=== PATIENT | male | born 1990 | race African-American/Black ===

== ENCOUNTER 2017-05-13 22:09 | Inpatient (IN) | payer SELFPAY ==
[~2017-05-13] VITALS: Ht 172.7 cm; Wt 63.3 kg
[~2017-05-13 22:09] MED LIST: Z.0.NO CURRENT MEDS
[2017-05-13] MEDS ORDERED: SODIUM CHLOR 0.9% 1000 ML INJ 1,000 ML IV SCH ×2 (22:14→22:22)
[2017-05-13] MEDS ORDERED: SODIUM CHLORIDE 0.9% FLUSH 5 ML FLUSH IV FLUSH PRN (22:15)
[2017-05-13 22:19] VITALS: BP 122/73; PULSE 115; RESP 30; TEMP 98.7
--- NOTE | 2017-05-13 22:27 | PD ---
HPI Chief Complaint: Medical Clearance Time Seen by Provider: 22:10 Travel History International Travel<30 days: No Contact w/Intl Traveler<30days: No Traveled to known affect area: No History of Present Illness HPI This is a 26-year-old male who presents via EMS with police escort evaluation of agitation and altered mental status. History is limited secondary to patient condition. EMS reports that the police apparently approached a suspicious car at a [address] and some members of the car noted that the patient was acting altered and had been hallucinating throughout the day. There was no admitted drug use. The patient is currently agitated, tachycardic, somewhat diaphoretic. Per chart review the patient's last recorded visit at this facility is in 2012. PFS Past Medical History Cancer: No Cardiovascular Problems: No Diminished Hearing: No Endocrine: No Gastrointestinal Disorders: No Genitourinary: No Immune Disorder: No Implanted Vascular Access Dvce: No Musculoskeletal: No Neurologic: No Psychiatric: No Reproductive: No Respiratory: No Past Surgical History Oral Surgery: Yes (FOR BROKEN JAW) Pacemaker: No Social History Alcohol Use: No Tobacco Use: Yes (1.5 PPD) Substance Use: No Allergies-Medications (Allergen,Severity, Reaction): Coded Allergies: tomato (Unverified Allergy, Severe, 05/13/17) Uncoded Allergies: PURPLE DYE (Allergy, Severe, 04/26/11) Reported Meds & Prescriptions Reported Meds & Active Scripts Active Review of Systems ROS Limitations: Altered Mental Status, Combative Except as stated in HPI: all other systems reviewed are Neg Physical Exam Exam Limitations: Altered Mental Status, Combative Narrative GENERAL: This is a well-nourished young male who is agitated, not responding to commands, occasionally shouting "ya'll are hurting me." Tachycardiac, SKIN: Warm and dry. The patient's pants are noted to be soaked in urine. Some abrasions are noted on the feet. HEAD: Atraumatic. Normocephalic. EYES: Pupils equal and round dilated, reactive to light, extraocular muscles appear intact. No scleral icterus. No injection or drainage. ENT: No nasal bleeding or discharge. Mucous membranes pink and moist. No obvious tongue biting. NECK: Trachea midline. No JVD. CARDIOVASCULAR: Regular rate and rhythm. No murmur appreciated. RESPIRATORY: No accessory muscle use. Clear to auscultation. Breath sounds equal bilaterally. GASTROINTESTINAL: Abdomen soft, non-tender, nondistended. Hepatic and splenic margins not palpable. MUSCULOSKELETAL: No obvious deformities. No edema. NEUROLOGICAL: Awake and alert. No obvious cranial nerve deficits. Motor grossly within normal limits. Pressured speech. PSYCHIATRIC: Agitated, paranoid, combative Data Data Last Documented VS Vital Signs Date Time Temp Pulse Resp B/P (MAP) Pulse Ox O2 Delivery O2 Flow Rate FiO2 05/13/17 23:45 92 14 119/76 (90) 100 Non-Rebreather 15.00 05/13/17 22:19 98.7 Orders Orders Electrocardiogram (05/13/17 22:14) Complete Blood Count With Diff (05/13/17 22:14) Comprehensive Metabolic Panel (05/13/17 22:14) Creatine Kinase (Cpk) (05/13/17 22:14) Thyroid Stimulating Hormone (05/13/17 22:14) Urinalysis - C+S If Indicated (05/13/17 22:14) Chest, Single Ap (05/13/17 22:14) Ct Brain W/O Iv Contrast(Rout) (05/13/17 22:14) Blood Glucose (05/13/17 22:14) Ecg Monitoring (05/13/17 22:14) Iv Access Insert/Monitor (05/13/17 22:14) Oximetry (05/13/17 22:14) Sodium Chloride 0.9% Flush (Ns Flush) (05/13/17 22:15) Sodium Chlor 0.9% 1000 Ml Inj (Ns 1000 M (05/13/17 22:14) Drug Screen, Random Urine (05/13/17 22:14) Alcohol (Ethanol) (05/13/17 22:14) Tylenol (Acetaminophen) (05/13/17 22:14) Salicylates (Aspirin) (05/13/17 22:14) Troponin I (05/13/17 22:14) Lorazepam Inj (Ativan Inj) (05/13/17 22:30) Sodium Chlor 0.9% 1000 Ml Inj (Ns 1000 M (05/13/17 22:22) Arterial Blood Gas (Abg) (05/13/17 ) Electrocardiogram (05/13/17 ) CKMB (05/13/17 22:21) CKMB% (05/13/17 22:21) Alcohol (Ethanol) (05/14/17 00:30) Sodium Chlor 0.9% 1000 Ml Inj (Ns 1000 M (05/14/17 00:30) Blood Glucose (05/14/17 00:30) Lorazepam Inj (Ativan Inj) (05/14/17 00:30) Arterial Blood Gas (Abg) (05/14/17 ) D5-Ns + Kcl 20 Meq Inj (D5-Ns + Kcl 20 M (05/14/17 03:15) Urine Culture (05/14/17 03:20) Admit Order (Ed Use Only) (05/14/17 ) ^ Saline Lock (05/14/17 03:40) Resp Oxygen Parvez C Titrat 1-4 L (05/14/17 ) Notify Dr: Other (05/14/17 03:40) Sodium Chloride 0.9% Flush (Ns Flush) (05/14/17 09:00) Sodium Chloride 0.9% Flush (Ns Flush) (05/14/17 03:45) Labs Laboratory Tests Test 05/13/17 22:21 05/13/17 22:54 05/14/17 00:36 05/14/17 03:20 White Blood Count 9.2 TH/MM3 Red Blood Count 5.56 MIL/MM3 Hemoglobin 15.4 GM/DL Hematocrit 46.1 % Mean Corpuscular Volume 82.8 FL Mean Corpuscular Hemoglobin 27.6 PG Mean Corpuscular Hemoglobin Concent 33.4 % Red Cell Distribution Width 13.3 % Platelet Count 199 TH/MM3 Mean Platelet Volume 9.4 FL Neutrophils (%) (Auto) 85.0 % Lymphocytes (%) (Auto) 7.9 % Monocytes (%) (Auto) 5.5 % Eosinophils (%) (Auto) 0.1 % Basophils (%) (Auto) 1.5 % Neutrophils # (Auto) 7.9 TH/MM3 Lymphocytes # (Auto) 0.7 TH/MM3 Monocytes # (Auto) 0.5 TH/MM3 Eosinophils # (Auto) 0.0 TH/MM3 Basophils # (Auto) 0.1 TH/MM3 CBC Comment AUTO DIFF Differential Comment AUTO DIFF CONFIRMED Platelet Estimate NORMAL Platelet Morphology Comment NORMAL Blood Urea Nitrogen 25 MG/DL Creatinine 1.94 MG/DL Random Glucose 65 MG/DL Total Protein 8.4 GM/DL Albumin 4.7 GM/DL Calcium Level 9.5 MG/DL Alkaline Phosphatase 61 U/L Aspartate Amino Transf (AST/SGOT) 46 U/L Alanine Aminotransferase (ALT/SGPT) 24 U/L Total Bilirubin 1.7 MG/DL Sodium Level 140 MEQ/L Potassium Level 3.8 MEQ/L Chloride Level 99 MEQ/L Carbon Dioxide Level 28.1 MEQ/L Anion Gap 13 MEQ/L Estimat Glomerular Filtration Rate 52 ML/MIN Total Creatine Kinase 2286 U/L Creatine Kinase MB 3.8 NG/ML Creatine Kinase MB % 0.2 % Troponin I 0.05 NG/ML Thyroid Stimulating Hormone 3rd Gen 1.680 uIU/ML Salicylates Level LESS THAN 1.7 MG/DL Acetaminophen Level LESS THAN 2.0 MCG/ML Ethyl Alcohol Level LESS THAN 3 MG/DL Blood Gas Puncture Site RT RADIAL RT RADIAL Blood Gas Patient Temperature 98.6 98.6 Blood Gas HCO3 22 mmol/L 21 mmol/L Blood Gas Base Excess -0.9 mmol/L -2.3 mmol/L Blood Gas Oxygen Saturation 97 % 98 % Arterial Blood pH 7.53 7.48 Arterial Blood Partial Pressure CO2 26 mmHg 28 mmHg Arterial Blood Partial Pressure O2 316 mmHG 286 mmHG Arterial Blood Oxygen Content 20.3 Vol % 19.8 Vol % Arterial Blood Carboxyhemoglobin 2.7 % 1.2 % Arterial Blood Methemoglobin 0.5 % 0.6 % Blood Gas Hemoglobin 14.4 G/DL 13.9 G/DL Oxygen Delivery Device Non-Rebreathing Mask NASAL CANNULA Blood Gas Liter Flow 15 L/M 4 L/M Blood Gas Inspired Oxygen 100 % Urine Color YELLOW Urine Turbidity CLEAR Urine pH 6.5 Urine Specific [place] 1.019 Urine Protein TRACE mg/dL Urine Glucose (UA) NEG mg/dL Urine Ketones 40 mg/dL Urine Occult Blood NEG Urine Nitrite NEG Urine Bilirubin NEG Urine Urobilinogen LESS THAN 2.0 MG/DL Urine Leukocyte Esterase NEG Urine RBC LESS THAN 1 /hpf Urine WBC 1 /hpf Urine Transitional Epithelial Cells <1 /hpf Urine Bacteria RARE /hpf Urine Hyaline Casts 4 /lpf Urine Mucus FEW /lpf Microscopic Urinalysis Comment CATH-CULTURE IND Urine Opiates Screen NEG Urine Barbiturates Screen NEG Urine Amphetamines Screen NEG Urine Benzodiazepines Screen NEG Urine Cocaine Screen NEG Urine Cannabinoids Screen POS MDM Medical Decision Making Medical Screen Exam Complete: Yes Emergency Medical Condition: Yes Medical Record Reviewed: Yes Differential Diagnosis Sympathomimetic drug abuse, anticholinergic drug abuse, postictal state, closed head injury, intracranial hemorrhage, encephalopathy, meningitis, rhabdomyolysis , heat illness Narrative Course The patient will be placed on ECG monitoring and pulse oximetry. A 12-lead EKG will be obtained. 2 mg of IV Ativan will be administered, 2 L normal saline bolus. Chest x-ray, CT of the brain have been ordered. Procedures EKG Prior to Arrival: Yes Karthik Romero May 13, 2017 22:27
[2017-05-13] MEDS ORDERED: LORazepam 2 MG/ML VIAL IV PUSH ONE (22:30)
[2017-05-13 22:36] LABS: AUTOMATED NEUTROPHIL # 7.9 TH/MM3 (1.8-7.7); BASOPHIL # 0.1 TH/MM3 (0-0.2); BASOPHIL % 1.5 % (0.0-2.0); EOSINOPHIL % 0.1 % (0.0-4.0); HEMATOCRIT 46.1 % (39.0-51.0); LYMPH % 7.9 % (9.0-44.0); LYMPHOCYTE # 0.7 TH/MM3 (1.0-4.8); MEAN CELL VOLUME 82.8 FL (80.0-100.0); MEAN CORPUSCULAR HEMOGLOBIN 27.6 PG (27.0-34.0); MEAN CORPUSCULAR HGB CONC 33.4 % (32.0-36.0); MONO % 5.5 % (0.0-8.0); PLATELET COUNT 199 TH/MM3 (150-450); RED BLOOD COUNT 5.56 MIL/MM3 (4.50-5.90); RED CELL DISTRIBUTION WIDTH 13.3 % (11.6-17.2); WHITE BLOOD COUNT 9.2 TH/MM3 (4.0-11.0)
[2017-05-13 22:39] LABS: HEMO FLAGS AUTO DIFF
[2017-05-13 22:50] VITALS: BP 117/76; PULSE 84; RESP 12; O2SAT 99
[2017-05-13 22:53] VITALS: RESP 12; O2SAT 99
[2017-05-13 23:07] LABS: BLOOD GAS BASE EXCESS -0.9 mmol/L (-2-2); BLOOD GAS CARBOXYHEMOGLOBIN 2.7 % (0-4); BLOOD GAS HCO3 22 mmol/L (22-26); BLOOD GAS METHEMOGLOBIN 0.5 % (0-2); BLOOD GAS O2 HGB SATURATION 97 % (90-100); BLOOD GAS OXYGEN CONTENT 20.3 Vol % (12.0-20.0); BLOOD GAS PCO2 26 mmHg (38-42); BLOOD GAS PO2 316 mmHG (61-120); BLOOD GAS TOTAL HGB 14.4 G/DL (12.0-16.0); CRITICAL VALUE YES; DRAW SITE RT RADIAL; FIO2 100 %; LITER FLOW 15 L/M; NUMBER OF ARTERIAL PUNCTURES 1; TEMP CORR TO 98.6
[2017-05-13 23:08] LABS: STAT YES; ULNAR PULSE Y
--- NOTE | 2017-05-13 23:09 | PD ---
Physical Exam Date Seen by Provider: May 13, 2017 Time Seen by Provider: 23:06 Narrative GENERAL: Well-developed well-nourished male in no acute distress on supplemental oxygen after Ativan 2 mg administered awakens to verbal tactile and painful stimuli with intermittent purposeful movement 12 SKIN: Warm and dry. HEAD: Normocephalic. EYES: No scleral icterus. No injection or drainage. NECK: Supple, trachea midline. No JVD or lymphadenopathy. CARDIOVASCULAR: Regular rate and rhythm without murmurs, gallops, or rubs. RESPIRATORY: Breath sounds equal bilaterally. No accessory muscle use. GASTROINTESTINAL: Abdomen soft, non-tender, nondistended. MUSCULOSKELETAL: No cyanosis, or edema. BACK: Nontender without obvious deformity. No CVA tenderness. Data Data Last Documented VS Vital Signs Date Time Temp Pulse Resp B/P (MAP) Pulse Ox O2 Delivery O2 Flow Rate FiO2 05/13/17 23:45 92 14 119/76 (90) 100 Non-Rebreather 15.00 05/13/17 22:19 98.7 Orders Orders Electrocardiogram (05/13/17 22:14) Complete Blood Count With Diff (05/13/17 22:14) Comprehensive Metabolic Panel (05/13/17 22:14) Creatine Kinase (Cpk) (05/13/17 22:14) Thyroid Stimulating Hormone (05/13/17 22:14) Urinalysis - C+S If Indicated (05/13/17 22:14) Chest, Single Ap (05/13/17 22:14) Ct Brain W/O Iv Contrast(Rout) (05/13/17 22:14) Blood Glucose (05/13/17 22:14) Ecg Monitoring (05/13/17 22:14) Iv Access Insert/Monitor (05/13/17 22:14) Oximetry (05/13/17 22:14) Sodium Chloride 0.9% Flush (Ns Flush) (05/13/17 22:15) Sodium Chlor 0.9% 1000 Ml Inj (Ns 1000 M (05/13/17 22:14) Drug Screen, Random Urine (05/13/17 22:14) Alcohol (Ethanol) (05/13/17 22:14) Tylenol (Acetaminophen) (05/13/17 22:14) Salicylates (Aspirin) (05/13/17 22:14) Troponin I (05/13/17 22:14) Lorazepam Inj (Ativan Inj) (05/13/17 22:30) Sodium Chlor 0.9% 1000 Ml Inj (Ns 1000 M (05/13/17 22:22) Arterial Blood Gas (Abg) (05/13/17 ) Electrocardiogram (05/13/17 ) CKMB (05/13/17 22:21) CKMB% (05/13/17 22:21) Alcohol (Ethanol) (05/14/17 00:30) Sodium Chlor 0.9% 1000 Ml Inj (Ns 1000 M (05/14/17 00:30) Blood Glucose (05/14/17 00:30) Lorazepam Inj (Ativan Inj) (05/14/17 00:30) Arterial Blood Gas (Abg) (05/14/17 ) D5-Ns + Kcl 20 Meq Inj (D5-Ns + Kcl 20 M (05/14/17 03:15) Urine Culture (05/14/17 03:20) Admit Order (Ed Use Only) (05/14/17 ) ^ Saline Lock (05/14/17 03:40) Resp Oxygen Parvez C Titrat 1-4 L (05/14/17 ) Notify Dr: Other (05/14/17 03:40) Sodium Chloride 0.9% Flush (Ns Flush) (05/14/17 09:00) Sodium Chloride 0.9% Flush (Ns Flush) (05/14/17 03:45) Labs Laboratory Tests Test 05/13/17 22:21 05/13/17 22:54 05/14/17 00:36 05/14/17 03:20 White Blood Count 9.2 TH/MM3 Red Blood Count 5.56 MIL/MM3 Hemoglobin 15.4 GM/DL Hematocrit 46.1 % Mean Corpuscular Volume 82.8 FL Mean Corpuscular Hemoglobin 27.6 PG Mean Corpuscular Hemoglobin Concent 33.4 % Red Cell Distribution Width 13.3 % Platelet Count 199 TH/MM3 Mean Platelet Volume 9.4 FL Neutrophils (%) (Auto) 85.0 % Lymphocytes (%) (Auto) 7.9 % Monocytes (%) (Auto) 5.5 % Eosinophils (%) (Auto) 0.1 % Basophils (%) (Auto) 1.5 % Neutrophils # (Auto) 7.9 TH/MM3 Lymphocytes # (Auto) 0.7 TH/MM3 Monocytes # (Auto) 0.5 TH/MM3 Eosinophils # (Auto) 0.0 TH/MM3 Basophils # (Auto) 0.1 TH/MM3 CBC Comment AUTO DIFF Differential Comment AUTO DIFF CONFIRMED Platelet Estimate NORMAL Platelet Morphology Comment NORMAL Blood Urea Nitrogen 25 MG/DL Creatinine 1.94 MG/DL Random Glucose 65 MG/DL Total Protein 8.4 GM/DL Albumin 4.7 GM/DL Calcium Level 9.5 MG/DL Alkaline Phosphatase 61 U/L Aspartate Amino Transf (AST/SGOT) 46 U/L Alanine Aminotransferase (ALT/SGPT) 24 U/L Total Bilirubin 1.7 MG/DL Sodium Level 140 MEQ/L Potassium Level 3.8 MEQ/L Chloride Level 99 MEQ/L Carbon Dioxide Level 28.1 MEQ/L Anion Gap 13 MEQ/L Estimat Glomerular Filtration Rate 52 ML/MIN Total Creatine Kinase 2286 U/L Creatine Kinase MB 3.8 NG/ML Creatine Kinase MB % 0.2 % Troponin I 0.05 NG/ML Thyroid Stimulating Hormone 3rd Gen 1.680 uIU/ML Salicylates Level LESS THAN 1.7 MG/DL Acetaminophen Level LESS THAN 2.0 MCG/ML Ethyl Alcohol Level LESS THAN 3 MG/DL Blood Gas Puncture Site RT RADIAL RT RADIAL Blood Gas Patient Temperature 98.6 98.6 Blood Gas HCO3 22 mmol/L 21 mmol/L Blood Gas Base Excess -0.9 mmol/L -2.3 mmol/L Blood Gas Oxygen Saturation 97 % 98 % Arterial Blood pH 7.53 7.48 Arterial Blood Partial Pressure CO2 26 mmHg 28 mmHg Arterial Blood Partial Pressure O2 316 mmHG 286 mmHG Arterial Blood Oxygen Content 20.3 Vol % 19.8 Vol % Arterial Blood Carboxyhemoglobin 2.7 % 1.2 % Arterial Blood Methemoglobin 0.5 % 0.6 % Blood Gas Hemoglobin 14.4 G/DL 13.9 G/DL Oxygen Delivery Device Non-Rebreathing Mask NASAL CANNULA Blood Gas Liter Flow 15 L/M 4 L/M Blood Gas Inspired Oxygen 100 % Urine Color YELLOW Urine Turbidity CLEAR Urine pH 6.5 Urine Specific [place] 1.019 Urine Protein TRACE mg/dL Urine Glucose (UA) NEG mg/dL Urine Ketones 40 mg/dL Urine Occult Blood NEG Urine Nitrite NEG Urine Bilirubin NEG Urine Urobilinogen LESS THAN 2.0 MG/DL Urine Leukocyte Esterase NEG Urine RBC LESS THAN 1 /hpf Urine WBC 1 /hpf Urine Transitional Epithelial Cells <1 /hpf Urine Bacteria RARE /hpf Urine Hyaline Casts 4 /lpf Urine Mucus FEW /lpf Microscopic Urinalysis Comment CATH-CULTURE IND Urine Opiates Screen NEG Urine Barbiturates Screen NEG Urine Amphetamines Screen NEG Urine Benzodiazepines Screen NEG Urine Cocaine Screen NEG Urine Cannabinoids Screen POS MDM Medical Record Reviewed: Yes Supervised Visit with ARTUR: Yes Interpretation(s) EKG sinus tachycardia with early repolarization ST elevation (EKG repeated and reviewed with on-call field kiln burner concurs changes are most likely consistent with early repolarization and not with a STEMI or also less likely pericarditis) Differential Diagnosis Polysubstance ingestion, sympathomimetic overdose, sepsis, AMS Narrative Course Patient brought to the emergency department placed on monitor agitated combative administered Ativan 2 mg IV; specimens collected and sent for resulting; EKG performed consistent with early repolarization--discussed with on -call field kiln burner Dr. Bo Patient awakening from benzodiazepine sedation talking with bedside girlfriend Patient becoming agitated and additional benzodiazepine Ativan [address] brain noncontrast performed which reveals no acute abnormalities chest x-ray reveals no acute abnormality CK total elevated at 2289 concerning for rhabdomyolysis with acute kidney injury. In creatinine 25/1.95; troponin I 0.05 not elevated Blood sugar noted to be 67 on bedside glucose blood sugar 79 Patient continued to receive IV fluids Patient on maintenance fluids D5 normal saline with 20 mEq of KCL Case discussed with on-call resident service with plan to admit to Dr. Shell -- - will admit to [facility] telemetry Physician Communication Physician Communication discussed with Dr Morgan for Dr Shell Diagnosis Primary Impression: Altered mental status Additional Impressions: Rhabdomyolysis Acute kidney injury Polysubstance abuse Admitting Information Admitting Physician Requests: Admit Lelo Wilson MD May 13, 2017 23:08
[2017-05-13 23:11] LABS: ALKALINE PHOSPHATASE 61 U/L (45-117); ALT (GPT) 24 U/L (12-78); CREATINE KINASE 2286 U/L (39-308); TOTAL BILIRUBIN ADULT 1.7 MG/DL (0.2-1.0)
[2017-05-13 23:14] LABS: BLOOD UREA NITROGEN 25 MG/DL (7-18); GLOMERULAR FILTRATION RATE 52 ML/MIN (>89)
--- NOTE | 2017-05-13 23:14 | RADRPT ---
EXAM DATE/TIME: 05/13/2017 22:50 [facility] COMPARISON: CHEST PA & LAT, November 12, 2012, 20:17. INDICATIONS : Unresponsive, altered mental status. MEDICAL HISTORY : None. SURGICAL HISTORY : None. ENCOUNTER: Initial ACUITY: 1 day PAIN SCORE: Non-responsive. LOCATION: Bilateral chest FINDINGS: A single view of the chest demonstrates the lungs to be symmetrically aerated without evidence of mas s, infiltrate or effusion. The cardiomediastinal contours are unremarkable. Osseous structures are intact. CONCLUSION: No evidence of acute cardiopulmonary disease. Sheldon Gaitan MD on May 13, 2017 at 23:11 Board Certified Radiologist. This report was verified electronically.
[2017-05-13 23:15] LABS: ACETAMINOPHEN LESS THAN 2.0 MCG/ML (10.0-30.0); ANION GAP 13 MEQ/L (5-15); AST (GOT) 46 U/L (15-37); BICARBONATE 28.1 MEQ/L (21.0-32.0); CHLORIDE 99 MEQ/L (98-107); POTASSIUM 3.8 MEQ/L (3.5-5.1); SODIUM (NA) 140 MEQ/L (136-145)
[2017-05-13 23:16] LABS: ALCOHOL LESS THAN 3 MG/DL (0-5)
[2017-05-13 23:24] LABS: CKMB 3.8 NG/ML (0.5-3.6)
[2017-05-13 23:45] VITALS: BP 119/76; PULSE 92; RESP 14; O2SAT 100
[2017-05-14] VITALS (11 sets, daily range): BP systolic 96–149; BP diastolic 58–102; PULSE 56–111; RESP 12–22; TEMP 96.3–97.9; O2SAT 94–100
[2017-05-14 00:09] LABS: PLATELET ESTIMATE SMEAR NORMAL (NORMAL); PLATELET MORPHOLOGY NORMAL (NORMAL); SCAN/DIFF AUTO DIFF CONFIRMED
[2017-05-14] MEDS ORDERED: SODIUM CHLOR 0.9% 1000 ML INJ 1,000 ML IV ONE ×2 (00:30→18:00)
[2017-05-14] MEDS ORDERED: LORazepam 2 MG/ML VIAL IV PUSH ONE ×2 (00:30→10:45)
[2017-05-14 00:48] LABS: BLOOD GAS BASE EXCESS -2.3 mmol/L (-2-2); BLOOD GAS CARBOXYHEMOGLOBIN 1.2 % (0-4); BLOOD GAS HCO3 21 mmol/L (22-26); BLOOD GAS METHEMOGLOBIN 0.6 % (0-2); BLOOD GAS O2 HGB SATURATION 98 % (90-100); BLOOD GAS OXYGEN CONTENT 19.8 Vol % (12.0-20.0); BLOOD GAS PCO2 28 mmHg (38-42); BLOOD GAS PO2 286 mmHG (61-120); BLOOD GAS TOTAL HGB 13.9 G/DL (12.0-16.0); TEMP CORR TO 98.6
[2017-05-14 00:49] LABS: CRITICAL VALUE NO; DRAW SITE RT RADIAL; LITER FLOW 4 L/M; NUMBER OF ARTERIAL PUNCTURES 1; OXYGEN DEVICE NASAL CANNULA; STAT YES; ULNAR PULSE PRESENT
--- NOTE | 2017-05-14 02:59 | RADRPT ---
EXAM DATE/TIME: 05/14/2017 02:45 [facility] COMPARISON: No previous studies available for comparison. INDICATIONS : Altered mental status. Possible substance ingestion. RADIATION DOSE: 34.65 CTDIvol (mGy) MEDICAL HISTORY : None SURGICAL HISTORY : None. ENCOUNTER: Initial ACUITY: 1 day PAIN SCALE: 0/10 LOCATION: cranial TECHNIQUE: Multiple contiguous axial images were obtained of the head. Using automated exposure control and adj ustment of the mA and/or kV according to patient size, radiation dose was kept as low as reasonably a chievable to obtain optimal diagnostic quality images. DICOM format image data is available electro nically for review and comparison. FINDINGS: Motion degraded study. CEREBRUM: The ventricles are normal for age. No evidence of midline shift, mass lesion, hemorrhage or acute in farction. No extra-axial fluid collections are seen. POSTERIOR FOSSA: The cerebellum and brainstem are intact. The 4th ventricle is midline. The cerebellopontine angle i s unremarkable. EXTRACRANIAL: The visualized portion of the orbits is intact. SKULL: The calvaria is intact. No evidence of skull fracture. CONCLUSION: No acute intracranial abnormality demonstrated. Sheldon Gaitan MD on May 14, 2017 at 2:57 Board Certified Radiologist. This report was verified electronically.
[2017-05-14] MEDS ORDERED: D5-NS + KCL 20 MEQ INJ 1,000 ML IV SCH (03:15)
[2017-05-14 03:29] LABS: BACTERIA, URINE RARE /hpf; BLOOD, URINE NEG (NEG); COMMENT (UR) CATH-CULTURE IND; CULTURE IF INDICATED CATH CULTURE IND; GLUCOSE,URINE NEG (NEG); HYALINE CAST, URINE 4 /lpf (RARE); KETONE, URINE 40 mg/dL (NEG); MUCUS URINE FEW /lpf (OCC); NITRITE,URINE NEG (NEG); PH, URINE 6.5 (5.0-8.5); TRANSITIONAL EPI CELLS, URINE <1 /hpf; URINE COLOR YELLOW (YELLW/STRAW)
[2017-05-14] MEDS ORDERED: SODIUM CHLORIDE 0.9% FLUSH 10 ML FLUSH IVF PRN (03:45)
[2017-05-14] MEDS ORDERED: SODIUM CHLORIDE 0.9% FLUSH 10 ML FLUSH IV FLUSH PRN (04:00)
[2017-05-14] MEDS ORDERED: NALOXONE HCL 0.4 MG/ML AMP IV PUSH PRN (04:00)
--- NOTE | 2017-05-14 04:05 | HHI.HP ---
HPI Service Family Medicine Primary Care Physician No Primary Care Physician Admission Diagnosis AMS; rhabdomyolysis; polysubstance use Diagnoses: International Travel<30 Days: No Contact w/Intl Traveler<30days: No Known Affected Area: No History of Present Illness 26 yr old M, recently incarcerated, presents to the ED via EMS for altered mental status. Accompanied by girlfriend, who provides all of the history. Patient is sedated due to receiving Ativan. Reports that patient took a gram of what was thought to be "Jane" Sunday night. He started to have hallucinations and paranoia. He took his girlfriend's car for a high speed myrna because he thought the police were after him. Stopped at a [employer] [address] station and his step mother and brother convinced him to get out of the car. Police and EMS arrived at the scene and transported him to [place] ED. Patient was diaphoretic, combative and agitated upon arrival. Patient's girlfriend states that his agitation is also exacerbated by looking at her cellphone. Reports that he hasn't slept or eaten in 2 days since taking the drug. She reports that he has been drinking and urinating more frequently. She reports that he has not had fever, N/V, or abdominal pain. (Claudia James MD R1) Review of Systems ROS Limitations: Altered Mental Status, Unresponsive (Claudia James MD R1) Past Family Social History Past Medical History None Past Surgical History Jaw surgery (Claudia James MD R1) Allergies: Coded Allergies: tomato (Unverified Allergy, Severe, 05/13/17) Uncoded Allergies: PURPLE DYE (Allergy, Severe, 04/26/11) Family History None Social History Was recently incarcerated for 5 years as reported by girlfriend, reports staying with a friend, smokes 1/2ppd, drinks occasionally, uses marijuana (Claudia James MD R1) Physical Exam Vital Signs Vital Signs Date Time Temp Pulse Resp B/P (MAP) Pulse Ox O2 Delivery O2 Flow Rate FiO2 05/14/17 03:49 98 Nasal Cannula 4.00 05/13/17 23:45 92 14 119/76 (90) 100 Non-Rebreather 15.00 05/13/17 22:53 12 99 Non-Rebreather 15.00 05/13/17 22:50 84 12 117/76 (90) 99 Non-Rebreather 15.00 05/13/17 22:25 100 30 100 Room Air 05/13/17 22:19 98.7 115 30 122/73 (89) Physical Exam GENERAL: Thin male, asleep in bed, sedated after receiving Ativan, NAD HEAD: Atraumatic. Normocephalic. EYES: Pinpoint pupils b/lt. NECK: Trachea midline. No JVD or lymphadenopathy. CARDIOVASCULAR: Regular rate and rhythm without murmurs, gallops, or rubs. RESPIRATORY: Clear to auscultation. Breath sounds equal bilaterally. No wheezes , rales, or rhonchi. GASTROINTESTINAL: Abdomen soft, non-tender, nondistended. No hepato-splenomegaly , or palpable masses. MUSCULOSKELETAL: No edema Laboratory Laboratory Tests Test 05/13/17 22:21 05/13/17 22:54 05/14/17 00:36 05/14/17 03:20 White Blood Count 9.2 Red Blood Count 5.56 Hemoglobin 15.4 Hematocrit 46.1 Mean Corpuscular Volume 82.8 Mean Corpuscular Hemoglobin 27.6 Mean Corpuscular Hemoglobin Concent 33.4 Red Cell Distribution Width 13.3 Platelet Count 199 Mean Platelet Volume 9.4 Neutrophils (%) (Auto) 85.0 Lymphocytes (%) (Auto) 7.9 Monocytes (%) (Auto) 5.5 Eosinophils (%) (Auto) 0.1 Basophils (%) (Auto) 1.5 Neutrophils # (Auto) 7.9 Lymphocytes # (Auto) 0.7 Monocytes # (Auto) 0.5 Eosinophils # (Auto) 0.0 Basophils # (Auto) 0.1 CBC Comment AUTO DIFF Differential Comment AUTO DIFF CONFIRMED Platelet Estimate NORMAL Platelet Morphology Comment NORMAL Blood Urea Nitrogen 25 Creatinine 1.94 Random Glucose 65 Total Protein 8.4 Albumin 4.7 Calcium Level 9.5 Alkaline Phosphatase 61 Aspartate Amino Transf (AST/SGOT) 46 Alanine Aminotransferase (ALT/SGPT) 24 Total Bilirubin 1.7 Sodium Level 140 Potassium Level 3.8 Chloride Level 99 Carbon Dioxide Level 28.1 Anion Gap 13 Estimat Glomerular Filtration Rate 52 Total Creatine Kinase 2286 Creatine Kinase MB 3.8 Creatine Kinase MB % 0.2 Troponin I 0.05 Thyroid Stimulating Hormone 3rd Gen 1.680 Salicylates Level LESS THAN 1.7 Acetaminophen Level LESS THAN 2.0 Ethyl Alcohol Level LESS THAN 3 Blood Gas Puncture Site RT RADIAL RT RADIAL Blood Gas Patient Temperature 98.6 98.6 Blood Gas HCO3 22 21 Blood Gas Base Excess -0.9 -2.3 Blood Gas Oxygen Saturation 97 98 Arterial Blood pH 7.53 7.48 Arterial Blood Partial Pressure CO2 26 28 Arterial Blood Partial Pressure O2 316 286 Arterial Blood Oxygen Content 20.3 19.8 Arterial Blood Carboxyhemoglobin 2.7 1.2 Arterial Blood Methemoglobin 0.5 0.6 Blood Gas Hemoglobin 14.4 13.9 Oxygen Delivery Device Non-Rebreathing Mask NASAL CANNULA Blood Gas Liter Flow 15 4 Blood Gas Inspired Oxygen 100 Urine Color YELLOW Urine Turbidity CLEAR Urine pH 6.5 Urine Specific [place] 1.019 Urine Protein TRACE Urine Glucose (UA) NEG Urine Ketones 40 Urine Occult Blood NEG Urine Nitrite NEG Urine Bilirubin NEG Urine Urobilinogen LESS THAN 2.0 Urine Leukocyte Esterase NEG Urine RBC LESS THAN 1 Urine WBC 1 Urine Transitional Epithelial Cells <1 Urine Bacteria RARE Urine Hyaline Casts 4 Urine Mucus FEW Microscopic Urinalysis Comment CATH-CULTURE IND Urine Opiates Screen NEG Urine Barbiturates Screen NEG Urine Amphetamines Screen NEG Urine Benzodiazepines Screen NEG Urine Cocaine Screen NEG Urine Cannabinoids Screen POS Date/Time Source Procedure Growth Status 05/14/17 03:20 Urine Catheterized Urine Urine Culture Pending Received (Claudia James MD R1) Result Diagram: 05/13/17222005/13/172220 Caprini VTE Risk Assessment Caprini VTE Risk Assessment: No/Low Risk (score <= 1) Caprini Risk Assessment Model Point Value = 1 Point Value = 2 Point Value = 3 Point Value = 5 Age 41-60 Minor surgery BMI > 25 kg/m2 Swollen legs Varicose veins or History of unexplained or recurrent spontaneous Oral contraceptives or hormone replacement Sepsis (< 1 month) Serious lung disease, including pneumonia (< 1 month) Abnormal pulmonary function Acute myocardial infarction Congestive heart failure (< 1 month) History of inflammatory bowel disease Medical patient at bed rest Age 61-74 Arthroscopic surgery Major open surgery (> 45 min) Laparoscopic surgery (> 45 min) Malignancy Confined to bed (> 72 hours) Immobilizing plaster cast Central venous access Age >= 75 History of VTE Family history of VTE Factor V Leiden Prothrombin [id number] Lupus anticoagulant Anticardiolipin antibodies Elevated serum homocysteine Heparin-induced thrombocytopenia Other congenital or acquired thrombophilia Stroke (< 1 month) Elective arthroplasty Hip, pelvis, or leg fracture Acute spinal cord injury (< 1 month) Prophylaxis Regimen Total Risk Factor Score Risk Level Prophylaxis Regimen 0-1 Low Early ambulation 2 Moderate Order ONE of the following: *Sequential Compression Device (SCD) *Heparin 5000 units SQ BID 3-4 Higher Order ONE of the following medications: *Heparin 5000 units SQ TID *Enoxaparin/Lovenox 40 mg SQ daily (WT < 150 kg, CrCl > 30 mL/min) *Enoxaparin/Lovenox 30 mg SQ daily (WT < 150 kg, CrCl > 10-29 mL/min) *Enoxaparin/Lovenox 30 mg SQ BID (WT < 150 kg, CrCl > 30 mL/min) AND/OR *Sequential Compression Device (SCD) 5 or more Highest Order ONE of the following medications: *Heparin 5000 units SQ TID (Preferred with Epidurals) *Enoxaparin/Lovenox 40 mg SQ daily (WT < 150 kg, CrCl > 30 mL/min) *Enoxaparin/Lovenox 30 mg SQ daily (WT < 150 kg, CrCl > 10-29 mL/min) *Enoxaparin/Lovenox 30 mg SQ BID (WT < 150 kg, CrCl > 30 mL/min) AND *Sequential Compression Device (SCD) (Claudia James MD R1) Assessment and Plan Assessment and Plan 26 yr old M admitted for AMS, Rhabdomyolysis, and CHETNA, secondary to polysubstance abuse Code Status Full code Discussed Condition With Dr. Wilson and Dr. Rosaline Morgan (Claudia James MD R1) Attending Attestation The patient has been seen and examined. The chart and all resident notes have been reviewed. I agree that inpatient care is appropriate and that a two midnight stay is expected for the reasons documented in the resident history and physical. I have discussed this with the resident and certify the resident s order for inpatient admission. (Raissa Orr MD) Problem List: (1) Altered mental status ICD Codes: R41.82 - Altered mental status, unspecified Status: Acute Plan: AMS secondary to polysubstance abuse -Combative and agitated upon arrival to ED -s/p Ativan in ED x 2, bolus 2x -ABG demonstrated elevated pH of 7.53, corrected to 7.48 placing patient on Non- rebreathing mask and transitioning to 4L NC -Blood glucose noted to be 65 on CMP -No leukocytosis on CBC -EKG showed sinus tach w/ early repolarization -Troponin not elevated 0.05, will continue to trend troponin x2 with EKG -CXR wnl -Head CT wnl (2) Polysubstance abuse ICD Codes: F19.10 - Other psychoactive substance abuse, uncomplicated Status: Acute Plan: -UDS positive for cannabinoids -will order extended UDS (3) Rhabdomyolysis ICD Codes: M62.82 - Rhabdomyolysis Status: Acute Plan: -CK elevated at 2286, repeated CK ordered for the AM -UA negative for blood -D5 + NS + KCl 20 Meq 175 mls/hr (4) Acute kidney injury ICD Codes: N17.9 - Acute kidney failure, unspecified Status: Acute Plan: -BUN elevated at 25 -Cr elevated at 1.94 - D5 + NS + KCl 20 Meq 175 mls/hr -Repeated CMP ordered for AM (5) Nutrition, metabolism, and development symptoms ICD Codes: R63.8 - Other symptoms and signs concerning food and fluid intake Plan: Fluids: D5 + NS + KCl 20 Meq 175 mls/hr Diet: Regular Electrolytes: Monitor and replace as necessary (Claudia James MD R1) Physician Certification 2 Midnight Certification Type: Admission for Inpatient Services Order for Inpatient Services The services are ordered in accordance with Medicare regulations or non- Medicare payer requirements, as applicable. In the case of services not specified as inpatient-only, they are appropriately provided as inpatient services in accordance with the 2-midnight benchmark. Estimated LOS (days): 2 2 days is the estimated time the patient will need to remain in the hospital, assuming treatment plan goals are met and no additional complications. Post-Hospital Plan: Home (Claudia James MD R1) Claudia James MD R1 May 14, 2017 04:05 Raissa Orr MD May 14, 2017 20:38
[2017-05-14] MEDS ORDERED: SODIUM CHLORIDE 0.9% FLUSH 10 ML FLUSH IV FLUSH SCH (09:00)
[2017-05-14] MEDS: SODIUM CHLORIDE 0.9% FLUSH 10 ML FLUSH IV FLUSH SCH ×2 (09:00→22:40)
[2017-05-14] MEDS ORDERED: diphenhydrAMINE HCL 50 MG/ML VIAL IV PUSH STA (13:57)
[2017-05-14] MEDS ORDERED: HALOPERIDOL LACTATE 5 MG/ML AMP IM STA (13:57)
[2017-05-14 14:03] LABS: AUTOMATED NEUTROPHIL # 5.8 TH/MM3 (1.8-7.7); BASOPHIL % 0.4 % (0.0-2.0); EOSINOPHIL % 0.5 % (0.0-4.0); HEMATOCRIT 42.2 % (39.0-51.0); HEMO FLAGS DIFF FINAL; LYMPH % 18.9 % (9.0-44.0); LYMPHOCYTE # 1.5 TH/MM3 (1.0-4.8); MEAN CELL VOLUME 84.1 FL (80.0-100.0); MEAN CORPUSCULAR HEMOGLOBIN 27.9 PG (27.0-34.0); MEAN CORPUSCULAR HGB CONC 33.1 % (32.0-36.0); MONO % 9.2 % (0.0-8.0); PLATELET COUNT 145 TH/MM3 (150-450); RED BLOOD COUNT 5.02 MIL/MM3 (4.50-5.90); RED CELL DISTRIBUTION WIDTH 13.4 % (11.6-17.2); WHITE BLOOD COUNT 8.1 TH/MM3 (4.0-11.0)
--- NOTE | 2017-05-14 14:42 | PD.PSY.CON ---
Provisional Diagnosis Admission Date May 14, 2017 at 03:42 [place] I. Unspecified psychosis Vs substance-induced psychosis, history of bipolar disorder [place] II. Deferred [place] III. Rhabdomyolysis, CHETNA History of Present Illness Service Psychiatry Consult Requested By Reason for Consult Psychosis Primary Care Physician No Primary Care Physician HPI The patient is a 26 year old man, domiciled his father, unemployed, single, with documented psychiatric history of bipolar disorder, but no psychiatric hospitalizations, no follow-up, no psychiatric medications at this moment, no previous suicidal attempts, polysubstance dependence including cannabis, amphetamines, cocaine, history of aggressive behavior and incarcerations, who presents to the ED via EMS for altered mental status. As per initial notes: Patient came accompanied by girlfriend, who provides all of the history. Patient is sedated due to receiving Ativan. Reports that patient took a gram of what was thought to be "Jane" Sunday night. He started to have hallucinations and paranoia. He took his girlfriend's car for a high speed myrna because he thought the police were after him. Stopped at a [employer] gas station and his step mother and brother convinced him to get out of the car. Police and EMS arrived at the scene and transported him to [place] ED. Patient was diaphoretic, combative and agitated upon arrival. Patient's girlfriend states that his agitation is also exacerbated by looking at her cellphone. Reports that he hasn't slept or eaten in 2 days since taking the drug. She reports that he has been drinking and urinating more frequently. She reports that he has not had fever, N/V, or abdominal pain. He is hospitalized with a diagnosis of rhabdomyolysis and CHETNA. On psychiatric evaluation today patient is restrained in 2 points, is agitated, fighting with the restraints, patient says that he has been hallucinating, seeing police cars around the room, feeling paranoid about the people around him, he says that he doesn't trust anybody, that he doesn't know who was trying to help him or hurt him. She seems to be hypervigilant, suspicious, guarded, unpredictable. Per nurse in charge, patient has been tried to run away a couple times this morning, is being agitated, giving aggressive, difficult to redirect. He denies suicidal and homicidal ideations. He doesn't know where he is, he is disoriented in time and place, with visible fluctuation of consciousness and attention deficit. He does report that he was using Moolly, or most probably Flacca, he endorses frequent use of cocaine and cannabis. Review of Systems Constitutional: DENIES: Diaphoretic episodes, Fatigue, Fever, Weight gain, Weight loss, Chills, Dizziness, Change in appetite, Night Sweats Endocrine: DENIES: Heat/cold intolerance, Polydipsia, Polyuria, Polyphagia Eyes: DENIES: Blurred vision, Diplopia, Eye inflammation, Eye pain, Vision loss , Photosensitivity, Double Vision Ears, nose, mouth, throat: DENIES: Tinnitus, Hearing loss, Vertigo, Nasal discharge, Oral lesions, Throat pain, Hoarseness, Ear Pain, Running Nose, Epistaxis, Sinus Pain, Toothache, Odynophagia Respiratory: DENIES: Apneas, Cough, Snoring, Wheezing, Hemoptysis, Sputum production, Shortness of breath Cardiovascular: COMPLAINS OF: Chest pain, Palpitations, Syncope, Dyspnea on Exertion, PND, Lower Extremity Edema, Orthopnea, Claudication Gastrointestinal: DENIES: Abdominal pain, Black stools, Bloody stools, Constipation, Diarrhea, Nausea, Vomiting, Difficulty Swallowing, Anorexia Musculoskeletal: DENIES: Joint pain, Muscle aches, Stiffness, Joint Swelling, Back pain, Neck pain Integumentary: DENIES: Abnormal pigmentation, Nail changes, Pruritus, Rash Hematologic/lymphatic: DENIES: Bruising, Lymphadenopathy Immunologic/allergic: DENIES: Eczema, Urticaria Neurologic: DENIES: Abnormal gait, Headache, Localized weakness, Paresthesias, Seizures, Speech Problems, Tremor, Poor Balance Psychiatric: COMPLAINS OF: Confusion, Hallucinations, Delusions, DENIES: Anxiety, Mood changes, Depression, Agitation, Suicidal Ideation, Homicidal Ideation Past Family Social History Coded Allergies: tomato (Unverified Allergy, Severe, 05/13/17) Uncoded Allergies: PURPLE DYE (Allergy, Severe, 04/26/11) Discontinued Reported Medications Miscellaneous (No Current Meds) Misc 04/26/11 Current Medications Medications (Trade) Dose Ordered Sig/Vee Route Start Time Stop Time Status Last Admin Potassium Chloride/Dextrose/ Sod Cl 1,000 ml @ 175 mls/hr [id number] IV 05/14/17 03:15 05/14/17 03:30 (NS Flush) 2 ml UNSCH PRN IV FLUSH 05/14/17 04:00 (NS Flush) 2 ml BID IV FLUSH 05/14/17 09:00 05/14/17 09:00 (Narcan Inj) 0.4 mg UNSCH PRN IV PUSH 05/14/17 04:00 (Haldol) 5 mg BID PO 05/14/17 14:00 Family History He denies psychiatric family history Social History Patient was born and raised in [place] [facility], he lives in [place] with his father, he has a girlfriend, his single, unemployed, recently released from group home, his highest level of education is GED Patient's Strengths (min. 2) Verbal communication Physical Exam Patient is physically agitated, with marked psychomotor agitation, restrained in 2 points, no pupillaries changes, no withdrawal, no EPS noted Vital Signs Vital Signs Date Time Temp Pulse Resp B/P (MAP) Pulse Ox O2 Delivery O2 Flow Rate FiO2 05/14/17 12:00 97.4 70 18 115/74 (88) 95 05/14/17 08:37 Nasal Cannula 4.00 I/O 05/14/17 05/14/17 05/15/17 08:00 16:00 00:00 Intake Total 0 ml Balance 0 ml Lab Results Test 05/13/17 22:21 05/13/17 22:54 05/14/17 00:36 05/14/17 03:20 White Blood Count 9.2 TH/MM3 Red Blood Count 5.56 MIL/MM3 Hemoglobin 15.4 GM/DL Hematocrit 46.1 % Mean Corpuscular Volume 82.8 FL Mean Corpuscular Hemoglobin 27.6 PG Mean Corpuscular Hemoglobin Concent 33.4 % Red Cell Distribution Width 13.3 % Platelet Count 199 TH/MM3 Mean Platelet Volume 9.4 FL Neutrophils (%) (Auto) 85.0 % Lymphocytes (%) (Auto) 7.9 % Monocytes (%) (Auto) 5.5 % Eosinophils (%) (Auto) 0.1 % Basophils (%) (Auto) 1.5 % Neutrophils # (Auto) 7.9 TH/MM3 Lymphocytes # (Auto) 0.7 TH/MM3 Monocytes # (Auto) 0.5 TH/MM3 Eosinophils # (Auto) 0.0 TH/MM3 Basophils # (Auto) 0.1 TH/MM3 CBC Comment AUTO DIFF Differential Comment AUTO DIFF CONFIRMED Platelet Estimate NORMAL Platelet Morphology Comment NORMAL Blood Urea Nitrogen 25 MG/DL Creatinine 1.94 MG/DL Random Glucose 65 MG/DL Total Protein 8.4 GM/DL Albumin 4.7 GM/DL Calcium Level 9.5 MG/DL Alkaline Phosphatase 61 U/L Aspartate Amino Transf (AST/SGOT) 46 U/L Alanine Aminotransferase (ALT/SGPT) 24 U/L Total Bilirubin 1.7 MG/DL Sodium Level 140 MEQ/L Potassium Level 3.8 MEQ/L Chloride Level 99 MEQ/L Carbon Dioxide Level 28.1 MEQ/L Anion Gap 13 MEQ/L Estimat Glomerular Filtration Rate 52 ML/MIN Total Creatine Kinase 2286 U/L Creatine Kinase MB 3.8 NG/ML Creatine Kinase MB % 0.2 % Troponin I 0.05 NG/ML Thyroid Stimulating Hormone 3rd Gen 1.680 uIU/ML Salicylates Level LESS THAN 1.7 MG/DL Acetaminophen Level LESS THAN 2.0 MCG/ML Ethyl Alcohol Level LESS THAN 3 MG/DL Blood Gas Puncture Site RT RADIAL RT RADIAL Blood Gas Patient Temperature 98.6 98.6 Blood Gas HCO3 22 mmol/L 21 mmol/L Blood Gas Base Excess -0.9 mmol/L -2.3 mmol/L Blood Gas Oxygen Saturation 97 % 98 % Arterial Blood pH 7.53 7.48 Arterial Blood Partial Pressure CO2 26 mmHg 28 mmHg Arterial Blood Partial Pressure O2 316 mmHG 286 mmHG Arterial Blood Oxygen Content 20.3 Vol % 19.8 Vol % Arterial Blood Carboxyhemoglobin 2.7 % 1.2 % Arterial Blood Methemoglobin 0.5 % 0.6 % Blood Gas Hemoglobin 14.4 G/DL 13.9 G/DL Oxygen Delivery Device Non-Rebreathing Mask NASAL CANNULA Blood Gas Liter Flow 15 L/M 4 L/M Blood Gas Inspired Oxygen 100 % Urine Color YELLOW Urine Turbidity CLEAR Urine pH 6.5 Urine Specific [place] 1.019 Urine Protein TRACE mg/dL Urine Glucose (UA) NEG mg/dL Urine Ketones 40 mg/dL Urine Occult Blood NEG Urine Nitrite NEG Urine Bilirubin NEG Urine Urobilinogen LESS THAN 2.0 MG/DL Urine Leukocyte Esterase NEG Urine RBC LESS THAN 1 /hpf Urine WBC 1 /hpf Urine Transitional Epithelial Cells <1 /hpf Urine Bacteria RARE /hpf Urine Hyaline Casts 4 /lpf Urine Mucus FEW /lpf Microscopic Urinalysis Comment CATH-CULTURE IND Urine Opiates Screen NEG Urine Barbiturates Screen NEG Urine Amphetamines Screen NEG Urine Benzodiazepines Screen NEG Urine Cocaine Screen NEG Urine Cannabinoids Screen POS Test 05/14/17 13:36 White Blood Count 8.1 TH/MM3 Red Blood Count 5.02 MIL/MM3 Hemoglobin 14.0 GM/DL Hematocrit 42.2 % Mean Corpuscular Volume 84.1 FL Mean Corpuscular Hemoglobin 27.9 PG Mean Corpuscular Hemoglobin Concent 33.1 % Red Cell Distribution Width 13.4 % Platelet Count 145 TH/MM3 Mean Platelet Volume 9.5 FL Neutrophils (%) (Auto) 71.0 % Lymphocytes (%) (Auto) 18.9 % Monocytes (%) (Auto) 9.2 % Eosinophils (%) (Auto) 0.5 % Basophils (%) (Auto) 0.4 % Neutrophils # (Auto) 5.8 TH/MM3 Lymphocytes # (Auto) 1.5 TH/MM3 Monocytes # (Auto) 0.8 TH/MM3 Eosinophils # (Auto) 0.0 TH/MM3 Basophils # (Auto) 0.0 TH/MM3 CBC Comment DIFF FINAL Differential Comment Date/Time Source Procedure Growth Status 05/14/17 03:20 Urine Catheterized Urine Urine Culture Pending Received Mental Status Examination Appearance man, age appearing, multiple tattoos throughout his body, uncooperative, agitated, restrained Speech: Hesitant Orientation: Person Memory: Impaired (describe) Thought Process: Loose Association, Thought Blocking Thought Content: Bizarre thinking, Paranoid Language Impaired due to level of psychosis Fund of Knowledge Unable to be assessed due to level of psychosis Hallucination Type: Auditory, Visual Attention and Concentration: Easily Distracted Suicidal Ideation: No Previous Suicide Attempts: No Homicidal Ideation: No Previous Homicide Attempts: No Insight: Poor Affect if Inappropriate: Labile Mood: Angry Motor Activity: Normal gait Assessment & Plan Problem List: (1) Unspecified psychosis ICD Codes: F29 - Unspecified psychosis not due to a substance or known physiological condition Assessment & Plan: On psychiatric evaluation patient presents with marked psychomotor agitation, irritable, disorganized, visible guarded suspicious and paranoid. Patient reports that he has been seen police cars out of his room, he says that he is not sure if in the hospital staff are trying to help him or to hurt him. Patient has reportedly tried to run out of the hospital, been very difficult to redirect in the floor, and continues to be actively psychotic. Patient also has fluctuation of consciousness, attention deficit, and is disoriented. In spite of multiple doses of IM Ativan agitation persists. Patient has a documented history of bipolar disorder and aggressive behavior, noncompliance with medications. At this point is unclear if his psychosis is secondary to drug intoxication or an exacerbation of a major primary psychiatric disorder. But, due to the level of psychosis an elevated risk of danger to self and others, patient needs to be admitted in psychiatry in voluntarily for stabilization and safety. We'll start Haldol 5 mg twice a day. Will order Haldol 5 mg IM stat and also Benadryl 50 mg IM stat to control behavior and to calm the patient down. Transfer the patient to psychiatry. We' ll follow-up. Assessment & Plan Estimated LOS: Morris Johnson MD May 14, 2017 14:42
[2017-05-14 14:48] LABS: CKMB 5.3 NG/ML (0.5-3.6)
[2017-05-14] MEDS: HALOPERIDOL 5 MG TAB PO SCH ×2 (15:01→22:40)
--- NOTE | 2017-05-14 15:58 | EKG ---
Date Performed: 05/14/2017 Time Performed: 13:23:05 PTAGE: 26 years EKG: SINUS BRADYCARDIA EARLY REPOLARIZATION BORDERLINE ECG PREVIOUS TRACING : 05/13/2017 22.47 Compared to prior tracing no significant change DOCTOR: Vasiliy Angeles Interpretating Date/Time 05/14/2017 15:57:39
--- NOTE | 2017-05-14 17:06 | HHI.FPPN ---
Subjective Subjective Patient seen and examined with the resident team. Case reviewed and discussed Please refer to resident H&P for further details regarding HPI, ROS, PMH, SurgHx , FH and SocHx. In summary, patient is a 26yoM presenting with AMS and bizarre behavior after suspected Mollys use Patient is seen in his hospital room with girlfriend at the bedside He reports significant weakness that he cannot even stand up. Reporting some muscle soreness diffusely this am. Mental status improved this am, but patient cannot recall events preceding his hospitalization. [facility] Objective Objective Last Impressions Head CT 05/13/172213 Signed Impressions: Service Date/Time: Sunday, May 14, 2017 02:45 - CONCLUSION: No acute intracranial abnormality demonstrated. Sheldon Gaitan MD Chest X-Ray 05/13/172213 Signed Impressions: Service Date/Time: Saturday, May 13, 2017 22:50 - CONCLUSION: No evidence of acute cardiopulmonary disease. Sheldon Gaitan MD Laboratory Tests - Abnormals Test 05/13/17 22:21 05/13/17 22:54 05/14/17 00:36 05/14/17 03:20 Neutrophils (%) (Auto) 85.0 % Lymphocytes (%) (Auto) 7.9 % Neutrophils # (Auto) 7.9 TH/MM3 Lymphocytes # (Auto) 0.7 TH/MM3 Blood Urea Nitrogen 25 MG/DL Creatinine 1.94 MG/DL Random Glucose 65 MG/DL Total Protein 8.4 GM/DL Aspartate Amino Transf (AST/SGOT) 46 U/L Total Bilirubin 1.7 MG/DL Estimat Glomerular Filtration Rate 52 ML/MIN Total Creatine Kinase 2286 U/L Creatine Kinase MB 3.8 NG/ML Salicylates Level LESS THAN 1.7 MG/DL Acetaminophen Level LESS THAN 2.0 MCG/ML Arterial Blood pH 7.53 7.48 Arterial Blood Partial Pressure CO2 26 mmHg 28 mmHg Arterial Blood Partial Pressure O2 316 mmHG 286 mmHG Arterial Blood Oxygen Content 20.3 Vol % Blood Gas HCO3 21 mmol/L Blood Gas Base Excess -2.3 mmol/L Urine Ketones 40 mg/dL Urine Bacteria RARE /hpf Urine Mucus FEW /lpf Urine Cannabinoids Screen POS Test 05/14/17 13:36 Platelet Count 145 TH/MM3 Neutrophils (%) (Auto) 71.0 % Monocytes (%) (Auto) 9.2 % Total Creatine Kinase 3411 U/L Creatine Kinase MB 5.3 NG/ML Vital Signs 05/13/17 05/13/17 05/13/17 05/13/17 22:19 22:25 22:50 22:53 Temp 98.7 Pulse 115 100 84 Resp 30 30 12 12 B/P (MAP) 122/73 (89) 117/76 (90) Pulse Ox 100 99 99 O2 Delivery Room Air Non-Rebreather Non-Rebreather O2 Flow Rate 15.00 15.00 05/13/17 05/14/17 05/14/17 05/14/17 23:45 03:49 04:31 05:10 Pulse 92 71 Resp 14 12 B/P (MAP) 119/76 (90) 96/58 (71) Pulse Ox 100 98 100 O2 Delivery Non-Rebreather Nasal Cannula Nasal Cannula O2 Flow Rate 15.00 4.00 2.00 05/14/17 05/14/17 05/14/17 05/14/17 05:15 06:09 08:00 08:26 Temp 96.3 Pulse 78 72 84 111 Resp 21 22 B/P (MAP) 104/65 (78) 149/102 (118) Pulse Ox 99 94 05/14/17 05/14/17 08:37 12:00 Temp 97.4 Pulse 70 Resp 18 B/P (MAP) 115/74 (88) Pulse Ox 98 95 O2 Delivery Nasal Cannula O2 Flow Rate 4.00 Physical exam GENERAL: thin male, NAD, sitting up in bed. SKIN: Warm and dry. Tattoos. HEAD: Normocephalic. AT EYES: No scleral icterus. No injection or drainage. ENT: Op clear. mmm NECK: Supple, trachea midline. No JVD or lymphadenopathy. CARDIOVASCULAR: Regular rate and rhythm without murmurs, gallops, or rubs. RESPIRATORY: Breath sounds equal bilaterally. No accessory muscle use. GASTROINTESTINAL: Abdomen soft, non-tender, nondistended. MUSCULOSKELETAL: No cyanosis, or edema. No calf tenderness. No tenderness to palpation of muscles. BACK: Nontender without obvious deformity. No CVA tenderness. NEURO: Awake and alert. CN grossly intact. PSYCH: Flat affect. Assessment Assessment 26yoM with: AMS Psychotic behavior, suspect substance induced ARF Rhabdomyolysis PSA Recent incarceration PLAN PLAN IVF Resuscitation Trend ck, bmp Neuro checks Psych consult Ativan prn Strict Is/Os Extended drug screen Patient seen and examined. Case reviewed and discussed Agree with plan of care as discussed with me and documented in the resident note. Raissa Orr MD May 14, 2017 17:06
--- NOTE | 2017-05-14 19:27 | EKG ---
Date Performed: 05/13/2017 Time Performed: 22:47:03 PTAGE: 26 years EKG: SINUS TACHYCARDIA WITH SHORT UT INTERVAL EARLY REPOLARIZATION ABNORMAL RHYTHM ECG NO PREVIOUS TRACING DOCTOR: Vasiliy Angeles Interpretating Date/Time 05/14/2017 19:26:06
--- NOTE | 2017-05-14 19:29 | EKG ---
Date Performed: 05/13/2017 Time Performed: 22:26:37 PTAGE: 26 years EKG: SINUS TACHYCARDIA WITH SHORT LA INTERVAL Early repolarization pattern NO PREVIOUS TRACING DOCTOR: Vasiliy Angeles Interpretating Date/Time 05/14/2017 19:27:17
[2017-05-14] MEDS: SODIUM CHLOR 0.9% 1000 ML INJ 1,000 ML IV SCH (22:39)
[2017-05-15 04:00] VITALS: BP 109/68; PULSE 54; RESP 20; TEMP 97.4; O2SAT 100
[2017-05-15] MEDS: SODIUM CHLOR 0.9% 1000 ML INJ 1,000 ML IV SCH ×2 (04:45→09:42)
[2017-05-15 08:00] VITALS: BP 118/80; PULSE 70; RESP 18; TEMP 96.6; O2SAT 97
[2017-05-15] MEDS: SODIUM CHLORIDE 0.9% FLUSH 10 ML FLUSH IV FLUSH SCH (09:41)
[2017-05-15] MEDS: HALOPERIDOL 5 MG TAB PO SCH (09:41)
[2017-05-15 10:00] VITALS: O2SAT 98
[2017-05-15] MEDS ORDERED: LORazepam 1 MG TAB PO PRN (11:15)
[2017-05-15] MEDS ORDERED: LORazepam 2 MG TAB PO PRN (11:15)
[2017-05-15] MEDS ORDERED: FLUMAZENIL 0.5 MG/5 ML VIAL IV PUSH PRN (11:15)
[2017-05-15] MEDS ORDERED: LORazepam 2 MG/ML VIAL IV PUSH PRN ×4 (11:15)
--- NOTE | 2017-05-15 11:15 | HHI.FPPN ---
Subjective Remarks Patient became combative yesterday afternoon; he required 5 mg Haldol stat IM injection at approximately 3 PM. Per witnesses including nurse and patient himself, he had this will contact with his girlfriend when she tried to leave the room. He also reportedly had some paranoia per the psychiatry physician. No overnight events reported. Patient states today he feels fine and is not report hallucinations. He denies loss of hurting himself or other people today. He is urinating frequently, still orange in color. He is ambulating without difficulty. All other systems reviewed and negative. (Rosaline Morgan MD R2) Objective Vitals Vital Signs Date Time Temp Pulse Resp B/P (MAP) Pulse Ox O2 Delivery O2 Flow Rate FiO2 05/15/17 08:00 96.6 70 18 118/80 (93) 97 05/15/17 04:00 97.4 54 20 109/68 (82) 100 05/15/17 00:00 05/14/17 20:39 98 Nasal Cannula 4.00 05/14/17 20:00 97.9 56 20 125/79 (94) 100 05/14/17 16:00 97.6 70 18 122/80 (94) 95 05/14/17 12:00 97.4 70 18 115/74 (88) 95 I/O 05/14/17 05/14/17 05/14/17 05/15/17 05/15/17 05/15/17 07:00 15:00 23:00 07:00 15:00 23:00 Intake Total 0 ml 700 ml 1820 ml 1397 ml Output Total 350 ml 900 ml Balance 0 ml 350 ml 1820 ml 497 ml Intake Oral 0 ml 700 ml 240 ml IV Total 1820 ml 1157 ml Output Urine Total 350 ml 900 ml # Voids 0 # Bowel Movements 0 (Rosaline Morgan MD R2) Result Diagram: 05/14/17 1336 05/13/172220 Imaging Last Impressions Head CT 05/13/172213 Signed Impressions: Service Date/Time: Sunday, May 14, 2017 02:45 - CONCLUSION: No acute intracranial abnormality demonstrated. Sheldon Gaitan MD Chest X-Ray 05/13/172213 Signed Impressions: Service Date/Time: Saturday, May 13, 2017 22:50 - CONCLUSION: No evidence of acute cardiopulmonary disease. Sheldon Gaitan MD Objective Remarks GENERAL: Thin, well-appearing male in no apparent distress. He is pleasant, calm , without restraints. SKIN: Warm and dry. No rashes or bruises. Many tattoos on the body. HEAD: Atraumatic. Normocephalic. EYES: Pupils equal and round. No scleral icterus. No injection or drainage. ENT: No nasal bleeding or discharge. Mucous membranes pink and moist. NECK: Trachea midline. No JVD. CARDIOVASCULAR: Regular rate and rhythm. No murmurs, gallops, or rubs auscultated. RESPIRATORY: No accessory muscle use. Clear to auscultation. Breath sounds equal bilaterally. GASTROINTESTINAL: Abdomen soft, non-tender, nondistended. Hepatic and splenic margins not palpable. MUSCULOSKELETAL: Extremities without clubbing, cyanosis, or edema. No obvious deformities. NEUROLOGICAL: Awake and alert. No obvious cranial nerve deficits. Motor grossly within normal limits. Patient has grossly normal strength today. He ambulated without difficulty. Normal speech. PSYCHIATRIC: Appropriate mood and affect; insight and judgment appear normal. No SI/HI. Does not appear to respond to internal stimuli. Medications and IVs Inpatient Medications Diphenhydramine HCl (Benadryl Inj) 50 mg STAT STAT IV PUSH Last administered on 05/14/17 15:01; Start 05/14/17 at 13:57; Stop 05/14/17 at 14:02; Status DC Haloperidol (Haldol) 5 mg BID PO Last administered on 05/15/17 09:41; Start 05/14/17 at 14:00 Haloperidol Lactate (Haldol Inj) 5 mg STAT STAT IM Last administered on 15:01; Start 05/14/17 at 13:57; Stop 05/14/17 at 14:02; Status DC IV Flush (NS Flush) 2 ml UNSCH PRN IV FLUSH FLUSH AFTER USING IV ACCESS; Start 05/13/17 at 22:15; Stop 05/14/17 at 04:01; Status DC Lorazepam (Ativan Inj) 1 mg ONCE ONCE IV PUSH Last administered on 05/14/17 10:50; Start 05/14/17 at 10:45; Stop 05/14/17 at 10:47; Status DC Naloxone HCl (Narcan Inj) 0.4 mg UNSCH PRN IV PUSH SEE LABEL COMMENTS; Start 05/14/17 at 04:00 Potassium Chloride/Dextrose/ Sod Cl 1,000 ml @ 175 mls/hr Q5H43M IV Last administered on 05/14/17 03:30; Start 05/14/17 at 03:15; Stop 05/14/17 at 20:38 ; Status DC Sodium Chloride 1,000 ml @ 175 mls/hr Q5H43M IV Last administered on 09:42; Start 05/14/17 at 20:45 Sodium Chloride (NS Flush) 2 ml BID IV FLUSH Last administered on 05/15/17 09: 41; Start 05/14/17 at 09:00 (Rosaline Morgan MD R2) Urinary Catheter: No (Rosaline Morgan MD R2) Vascular Central Line Catheter: No (Rosaline Morgan MD R2) A/P Assessment and Plan 26 yr old M admitted 05/13 for AMS, Rhabdomyolysis, and CHETNA, with presumptive etiology Jane intoxication with possible underlying medical psychosis versus psychosis due to underlying psychiatric condition. Discharge Planning Patient is medically stable today. He is cleared for discharge to med psych floor for further psychiatric evaluation. Mishra act was officially placed 05/15 at 10 AM, however, he met criteria for involuntary Mishra act yesterday at 3 PM (Rosaline Morgan MD R2) Attending Attestation Patient seen and examined. Case reviewed and discussed Agree with plan of care as discussed with me and documented in the resident note. (Raissa Orr MD) Problem List: (1) Altered mental status ICD Codes: R41.82 - Altered mental status, unspecified Status: Acute Plan: Patient presented with AMS on 05/13 and had an episode of acute combative psychosis the afternoon of 05/14. This was initially suspected related to mild intoxication, however, considering continued combativeness, AMS may be related to underlying psychiatric condition. * Continue to monitor mental status as inpatient * Patient did receive Haldol 5 mg 1 yesterday, and was placed on Haldol 5 mg twice a day per psychiatry, will continue per psychiatry * Transfer to med psych floor today * Soft restraints as needed, currently without * Patient did have AST:ALT greater than 2:1, EtOH was negative. Will order CIWA protocol today with oral multivitamins * Continue medical management as otherwise documented Hospital course: -Combative and agitated upon arrival to ED -s/p Ativan in ED x 2, bolus NS 1L x 2 -1.5x maintenance NS -ABG demonstrated elevated pH of 7.53, corrected to 7.48 placing patient on Non- rebreathing mask and transitioning to 4L NC, now on room air -Blood glucose noted to be 65 on CMP -No leukocytosis -EKG showed sinus tach w/ early repolarization, with confirmation with Dr. Gonzalez in ED per ED physician -Troponins within normal limits -CXR wnl -Head CT wnl (2) Unspecified psychosis ICD Codes: F29 - Unspecified psychosis not due to a substance or known physiological condition Plan: As above (3) Polysubstance abuse ICD Codes: F19.10 - Other psychoactive substance abuse, uncomplicated Status: Acute Plan: * Patient only endorses drinking unknown beverage at a club the night before admission * UDS positive for cannabinoids * Extended UDS pending (4) Rhabdomyolysis ICD Codes: M62.82 - Rhabdomyolysis Status: Acute Plan: Moderate rhabdomyolysis secondary to dehydration and overheating. Urine noted to be orange in color. UA showing some ketones but otherwise within normal limits * CK elevated at 2286 --> 3411, repeat CK pending along with CMP * D5 + NS + KCl 20 Meq @ 175 mls/hr for now, will decrease as indicated (5) Acute kidney injury ICD Codes: N17.9 - Acute kidney failure, unspecified Status: Acute Plan: BUN elevated at 25, Cr elevated at 1.94 on admission. * Management as above (6) Nutrition, metabolism, and development symptoms ICD Codes: R63.8 - Other symptoms and signs concerning food and fluid intake Plan: Fluids: D5 + NS + KCl 20 Meq 175 mls/hr Electrolytes: Monitor and replete as needed Nutrition: Regular diet DVT Prophylaxis: Early ambulation. Bilateral SCDs as indicated if patient become sedentary GI Prophylaxis: Not indicated (Rosaline Morgan MD R2) Problem Qualifiers (1) Unspecified psychosis: Qualified Codes: F23 - Brief psychotic disorder (2) Rhabdomyolysis: Qualified Codes: M62.82 - Rhabdomyolysis Rosaline Morgan MD R2 May 15, 2017 11:15 Raissa Orr MD May 23, 2017 09:28
[2017-05-15 11:41] VITALS: BP 116/67; PULSE 70; RESP 18; TEMP 96.7; O2SAT 99
[2017-05-15] MEDS ORDERED: MULTIVITAMIN TAB PO SCH (12:00)
[2017-05-15] MEDS ORDERED: FOLIC ACID 1 MG TAB PO SCH (12:00)
[2017-05-15] MEDS ORDERED: THIAMINE HCL 100 MG TAB PO SCH (12:00)
--- NOTE | 2017-05-15 15:09 | HHI.PYPN ---
Subjective Remarks Patient was seen today for psychiatric reevaluation, she was found quite sedated , poorly cooperative in the follow-up. His girlfriend who is at bedside, states that the patient has been calmer today, but unpredictable, and she does not feel comfortable taking him home with her "because he has been to psychotic on and off, and Haldol was just started". As per nursing charge, patient has been compliant with his medications, but episodically agitated and paranoid. The patient is poorly cooperative, he denies suicidal ideation, he denies homicidal ideation, denies visual and auditory hallucinations. He is oriented 3. Review of Systems Other No somatic complaints Objective Alert: Yes [place]: Person, Place Mood: Calm Affect: Restricted Memory Intact: Comment (no formally assessed) Hallucinations: Other (no hallucinations) Delusions: Yes Delusion Type: Paranoid Suicidal: Ideation (No SI) Homicidal: Ideation (no HI) Insight/Judgment Poor Labs Date/Time Source Procedure Growth Status 05/14/17 03:20 Urine Catheterized Urine Urine Culture - Preliminary IMMATURE GROWTH - REINCUBATE Resulted Vitals/IOs Vital Signs Date Time Temp Pulse Resp B/P (MAP) Pulse Ox O2 Delivery O2 Flow Rate FiO2 05/15/17 11:41 96.7 70 18 116/67 (83) 99 05/15/17 10:00 Nasal Cannula 4.00 Intake and Output 05/15/17 05/15/17 05/16/17 08:00 16:00 00:00 Intake Total 1397 ml 1656 ml Output Total 900 ml 300 ml Balance 497 ml 1356 ml Assessment & Plan Problem List: (1) Unspecified psychosis ICD Codes: F29 - Unspecified psychosis not due to a substance or known physiological condition Assessment & Plan: Continue with the plan of admission for stabilization of psychosis and safety. Patient was Mishra acted by primary team due to psychosis and paranoid. Continue Haldol 5 mg twice a day. Transfer to psychiatry Assessment & Plan Estimated LOS: days Justification for Cont. Inpt. Patient is acutely psychotic, needs psychiatric hospitalization for stabilization. Morris Lua MD May 15, 2017 15:09
[2017-05-15 15:45] LABS: AUTOMATED NEUTROPHIL # 3.3 TH/MM3 (1.8-7.7); BASOPHIL % 0.4 % (0.0-2.0); EOSINOPHIL # 0.1 TH/MM3 (0-0.4); EOSINOPHIL % 2.7 % (0.0-4.0); HEMO FLAGS DIFF FINAL; LYMPH % 26.8 % (9.0-44.0); LYMPHOCYTE # 1.4 TH/MM3 (1.0-4.8); MEAN CELL VOLUME 83.3 FL (80.0-100.0); MEAN CORPUSCULAR HEMOGLOBIN 28.4 PG (27.0-34.0); MEAN CORPUSCULAR HGB CONC 34.1 % (32.0-36.0); MONO % 7.4 % (0.0-8.0); NEUT % 62.7 % (16.0-70.0); PLATELET COUNT 156 TH/MM3 (150-450); RED CELL DISTRIBUTION WIDTH 13.6 % (11.6-17.2); WHITE BLOOD COUNT 5.3 TH/MM3 (4.0-11.0)
[2017-05-15 16:00] VITALS: BP 115/61; PULSE 62; RESP 16; TEMP 98.4; O2SAT 98
[2017-05-15 16:30] LABS: ALKALINE PHOSPHATASE 51 U/L (45-117); ALT (GPT) 19 U/L (12-78); ANION GAP 7 MEQ/L (5-15); AST (GOT) 36 U/L (15-37); BICARBONATE 25.3 MEQ/L (21.0-32.0); BLOOD UREA NITROGEN 12 MG/DL (7-18); CHLORIDE 108 MEQ/L (98-107); CREATINE KINASE 1227 U/L (39-308); GLOMERULAR FILTRATION RATE 117 ML/MIN (>89); POTASSIUM 4.1 MEQ/L (3.5-5.1); SODIUM (NA) 140 MEQ/L (136-145); TOTAL BILIRUBIN ADULT 0.8 MG/DL (0.2-1.0)
[2017-05-15 16:44] LABS: CKMB 2.3 NG/ML (0.5-3.6)
[2017-05-15] MEDS ORDERED: HALO5TAB PO (17:25)
--- NOTE | 2017-05-15 17:26 | HHI.DCPOC ---
Discharge Care Plan Diagnosis: (1) Rhabdomyolysis (2) Altered mental status (3) Polysubstance abuse (4) Acute kidney injury (5) Unspecified psychosis Goals to Promote Your Health * To prevent worsening of your condition and complications * To maintain your health at the optimal level Directions to Meet Your Goals Take your medications as prescribed Follow your dietary instruction Follow activity as directed Keep your appointments as scheduled Take your immunizations and boosters as scheduled If your symptoms worsen call your PCP, if no PCP go to Urgent Care Center or Emergency Room Smoking is Dangerous to Your Health. Avoid second hand smoke Call the 24-hour hour crisis hotline for domestic abuse at Raissa Orr MD May 15, 2017 17:26
--- NOTE | 2017-05-15 19:58 | HHI.DS ---
Discharge Summary Admission Date May 14, 2017 at 03:42 Admitting Diagnosis AMS; rhabdomyolysis; polysubstance use (1) Altered mental status Diagnosis: Principal Plan: Patient presented with AMS on 05/13 and had an episode of acute combative psychosis the afternoon of 05/14. This was initially suspected related to mild intoxication, however, considering continued combativeness, AMS may be related to underlying psychiatric condition. * Continue to monitor mental status as inpatient * Patient did receive Haldol 5 mg 1 yesterday, and was placed on Haldol 5 mg twice a day per psychiatry, will continue per psychiatry * Transfer to med psych floor today * Soft restraints as needed, currently without * Patient did have AST:ALT greater than 2:1, EtOH was negative. Will order CIWA protocol today with oral multivitamins * Continue medical management as otherwise documented Hospital course: -Combative and agitated upon arrival to ED -s/p Ativan in ED x 2, bolus NS 1L x 2 -1.5x maintenance NS -ABG demonstrated elevated pH of 7.53, corrected to 7.48 placing patient on Non- rebreathing mask and transitioning to 4L NC, now on room air -Blood glucose noted to be 65 on CMP -No leukocytosis -EKG showed sinus tach w/ early repolarization, with confirmation with Dr. Gonzalez in ED per ED physician -Troponins within normal limits -CXR wnl -Head CT wnl ICD Codes: R41.82 - Altered mental status, unspecified Status: Acute (2) Unspecified psychosis Diagnosis: Principal Plan: As above ICD Codes: F29 - Unspecified psychosis not due to a substance or known physiological condition (3) Polysubstance abuse Diagnosis: Secondary Plan: * Patient only endorses drinking unknown beverage at a club the night before admission * UDS positive for cannabinoids * Extended UDS pending ICD Codes: F19.10 - Other psychoactive substance abuse, uncomplicated Status: Acute (4) Rhabdomyolysis Diagnosis: Principal Plan: Moderate rhabdomyolysis secondary to dehydration and overheating. Urine noted to be orange in color. UA showing some ketones but otherwise within normal limits * CK elevated at 2286 --> 3411, repeat CK pending along with CMP * D5 + NS + KCl 20 Meq @ 175 mls/hr for now, will decrease as indicated ICD Codes: M62.82 - Rhabdomyolysis Status: Acute (5) Acute kidney injury Diagnosis: Principal Plan: BUN elevated at 25, Cr elevated at 1.94 on admission. * Management as above ICD Codes: N17.9 - Acute kidney failure, unspecified Status: Acute (6) Nutrition, metabolism, and development symptoms Plan: Fluids: D5 + NS + KCl 20 Meq 175 mls/hr Electrolytes: Monitor and replete as needed Nutrition: Regular diet DVT Prophylaxis: Early ambulation. Bilateral SCDs as indicated if patient become sedentary GI Prophylaxis: Not indicated ICD Codes: R63.8 - Other symptoms and signs concerning food and fluid intake Brief History 26 yr old M, recently incarcerated, presents to the ED via EMS for altered mental status. Accompanied by girlfriend, who provides all of the history. Patient is sedated due to receiving Ativan. Reports that patient took a gram of what was thought to be "Jane" Sunday night. He started to have hallucinations and paranoia. He took his girlfriend's car for a high speed myrna because he thought the police were after him. Stopped at a [address] gas station and his step mother and brother convinced him to get out of the car. Police and EMS arrived at the scene and transported him to [place] ED. Patient was diaphoretic, combative and agitated upon arrival. Patient's girlfriend states that his agitation is also exacerbated by looking at her cellphone. Reports that he hasn't slept or eaten in 2 days since taking the drug. She reports that he has been drinking and urinating more frequently. She reports that he has not had fever, N/V, or abdominal pain. CBC/BMP: 05/15/17 1451 05/15/17 1451 Significant Findings Laboratory Tests Test 05/13/17 22:21 05/13/17 22:54 05/14/17 00:36 05/14/17 03:20 Neutrophils (%) (Auto) 85.0 % (16.0-70.0) Lymphocytes (%) (Auto) 7.9 % (9.0-44.0) Neutrophils # (Auto) 7.9 TH/MM3 (1.8-7.7) Lymphocytes # (Auto) 0.7 TH/MM3 (1.0-4.8) Blood Urea Nitrogen 25 MG/DL (7-18) Creatinine 1.94 MG/DL (0.60-1.30) Random Glucose 65 MG/DL (74-106) Total Protein 8.4 GM/DL (6.4-8.2) Aspartate Amino Transf (AST/SGOT) 46 U/L (15-37) Total Bilirubin 1.7 MG/DL (0.2-1.0) Estimat Glomerular Filtration Rate 52 ML/MIN (>89) Total Creatine Kinase 2286 U/L (39-308) Creatine Kinase MB 3.8 NG/ML (0.5-3.6) Salicylates Level LESS THAN 1.7 MG/DL Acetaminophen Level LESS THAN 2.0 MCG/ML Arterial Blood pH 7.53 (7.380-7.420) 7.48 (7.380-7.420) Arterial Blood Partial Pressure CO2 26 mmHg (38-42) 28 mmHg (38-42) Arterial Blood Partial Pressure O2 316 mmHG (61-120) 286 mmHG (61-120) Arterial Blood Oxygen Content 20.3 Vol % (12.0-20.0) Blood Gas HCO3 21 mmol/L (22-26) Blood Gas Base Excess -2.3 mmol/L (-2-2) Urine Ketones 40 mg/dL (NEG) Urine Bacteria RARE /hpf (NONE) Urine Mucus FEW /lpf (OCC) Urine Cannabinoids Screen POS (NEG) Test 05/14/17 13:36 05/15/17 14:51 Platelet Count 145 TH/MM3 (150-450) Neutrophils (%) (Auto) 71.0 % (16.0-70.0) Monocytes (%) (Auto) 9.2 % (0.0-8.0) Total Creatine Kinase 3411 U/L (39-308) 1227 U/L (39-308) Creatine Kinase MB 5.3 NG/ML (0.5-3.6) Total Protein 5.9 GM/DL (6.4-8.2) Albumin 3.0 GM/DL (3.4-5.0) Calcium Level 7.8 MG/DL (8.5-10.1) Chloride Level 108 MEQ/L (98-107) Troponin I LESS THAN 0.02 NG/ML PE at Discharge GENERAL: Thin, well-appearing male in no apparent distress. He is pleasant, calm , without restraints. SKIN: Warm and dry. No rashes or bruises. Many tattoos on the body. HEAD: Atraumatic. Normocephalic. EYES: Pupils equal and round. No scleral icterus. No injection or drainage. ENT: No nasal bleeding or discharge. Mucous membranes pink and moist. NECK: Trachea midline. No JVD. CARDIOVASCULAR: Regular rate and rhythm. No murmurs, gallops, or rubs auscultated. RESPIRATORY: No accessory muscle use. Clear to auscultation. Breath sounds equal bilaterally. GASTROINTESTINAL: Abdomen soft, non-tender, nondistended. Hepatic and splenic margins not palpable. MUSCULOSKELETAL: Extremities without clubbing, cyanosis, or edema. No obvious deformities. NEUROLOGICAL: Awake and alert. No obvious cranial nerve deficits. Motor grossly within normal limits. Patient has grossly normal strength today. He ambulated without difficulty. Normal speech. PSYCHIATRIC: Appropriate mood and affect; insight and judgment appear normal. No SI/HI. Does not appear to respond to internal stimuli. Hospital Course Patient admitted on 05/14 for altered mental status likely secondary to [place] along with rhabdomyolysis, CK elevated to 2286, and CHETNA creatinine 1.94. Aggressively hydrated. Patient was examined by psychiatrist and was noted to have paranoid delusions. Was recommended he go to inpatient psych following medical stabilization. On 05/15 CK had decreased to 1227, creatinine was within normal limits at 0.96. Patient was transferred to inpatient psych. Pt Condition on Discharge: Stable Discharge Disposition: Disc to Psych Care Fac Discharge Instructions DIET: Follow Instructions for: As Tolerated, No Restrictions Activities you can perform: Regular-No Restrictions Follow up Referrals: PCP Follow-up - 1 Week Psychiatry Adult - 1 Week New Medications: Haloperidol (Haloperidol) 5 Mg Tab 5 MG PO BID, #30 TAB Gui Mcqueen MD R1 May 15, 2017 19:58
[2017-05-16] MEDS ORDERED: OLAN5TAB PO (12:21)
[2017-05-16] MEDS ORDERED: BENZ0.5T PO (12:21)
[2017-05-18 07:35] LABS: OBMETHADONE UR NEG (NEG); PHENCYCLIDINE URINE NEG (NEG)
[2017-05-18 07:36] LABS: BATH SALTS (MDPV) UR NEG (NEG); ECSTASY (MDMA) UR NEG (NEG); GABAPENTIN UR NEG (NEG); HEROIN (6-ACETYLMORPHINE) UR NEG (NEG); HYDROMORPHONE U NEG (NEG); K2 SPICE UR NEG (NEG)
== END 2017-05-15 19:42 | DRG 683 ==
LOC: NEPC 22:09 → NEDA 05-14 03:42 → N06A 05-14 04:58
PROVIDERS: ADMIT Family Medicine; ATTEND Family Medicine
DX: N17.9 Acute kidney failure, unspecified (principal); M62.82 Rhabdomyolysis; F23 Brief psychotic disorder; E86.0 Dehydration; F19.10 Other psychoactive substance abuse, uncomplicated; Z72.0 Tobacco use
CPT/HCPCS: 36600; 70450; 71010; 80053; 80307; 81001; 82550; 82552; 82805; 82948; 84443; 84484; 85025; 87086; 93005; 96361; 96374; 96376; G0481; J1200; J1630; J2060; J3480; J7030

== ENCOUNTER 2017-05-14 19:40 | Inpatient (IN) | payer SELFPAY ==
[~2017-05-14] VITALS: Ht 180.3 cm; Wt 63.9 kg
[2017-05-15] MEDS ORDERED: HALO5TAB PO (17:25)
[2017-05-15] MEDS ORDERED: LORazepam 1 MG TAB PO PRN (20:30)
[2017-05-15] MEDS ORDERED: diphenhydrAMINE HCL 50 MG CAP - HS PRN PO (20:30)
[2017-05-15] MEDS ORDERED: ACETAMINOPHEN 325 MG TAB PO PRN (20:30)
[2017-05-15] MEDS ORDERED: diphenhydrAMINE HCL 50 MG/ML VIAL - HS PRN IM (20:30)
[2017-05-15] MEDS ORDERED: ALUMINUM/MAGNESIUM/SIMETH 30 ML CUP PO PRN (20:30)
[2017-05-15] MEDS ORDERED: MAGNESIUM HYDROXIDE SUSP 30 ML CUP PO PRN (20:30)
[2017-05-15] MEDS ORDERED: LORazepam 2 MG/ML VIAL IM PRN (20:30)
[2017-05-15] MEDS ORDERED: diphenhydrAMINE HCL 50 MG/ML VIAL IM PRN (20:30)
[2017-05-15 20:48] VITALS: BP 129/79; PULSE 56; RESP 16; TEMP 98.1; O2SAT 100
[2017-05-15] MEDS ORDERED: REMOVE OLD NICOTINE PATCH T-DERMAL SCH (21:00)
[2017-05-15] MEDS ORDERED: diphenhydrAMINE HCL 50 MG CAP PO PRN (21:00)
[2017-05-15] MEDS: OLANZapine 5 MG TAB PO SCH (21:00)
[2017-05-16 06:08] VITALS: BP 127/73; PULSE 77; RESP 16; TEMP 98; O2SAT 99
[2017-05-16] MEDS ORDERED: NICOTINE 21 MG/24 HR PATCH T-DERMAL SCH (09:00)
[2017-05-16] MEDS: OLANZapine 5 MG TAB PO SCH ×2 (09:00→13:00)
[2017-05-16 11:50] LABS: CKMB 2.4 NG/ML (0.5-3.6)
--- NOTE | 2017-05-16 12:13 | HHI.HP ---
Provisional Diagnosis Admission Date May 15, 2017 at 19:45 [place]. Substance induced psychotic disorder; polysubstance use disorder Certification of Person's Competence To Provide Express and Informed Consent I have personally examined Sheldon Nichols III , a person being served at [facility] on, May 16, 2017 12:13. Express and informed consent means consent voluntarily given in writing, by a competent person, after sufficient explanation and disclosure of the subject matter involved to enable the person to make a knowing and willful decision without any element of force, fraud, deceit, duress, or other form of constraint or coercion. This person is 18 years of age or older, is not now known to be incompetent to consent to treatment with a guardian advocate, and does not have a health care surrogate or proxy currently making medical treatment decisions. I have found this person to be one of the following: [x] Competent to provide express and informed consent, as defined above, for voluntary admission to this facility and is competent to provide express and informed consent for treatment. He/she has the consistent capacity to make well reasoned, willful, and knowing decisions concerning his or her medical or mental health treatment. The person fully and consistently understands the purpose of the admission for examination/placement and is fully capable of personally exercising all rights assured [place] Incompetent to provide express and informed consent to voluntary admission, and this is incompetent to provide express and informed consent to treatment. The person must be transferred to involuntary status and a petition for a guardian advocate filed with the Circuit Court. [] Refusing to provide express and informed consent to voluntary admission but is competent to provide express and informed consent for treatment. The person must be discharged or transferred to involuntary status. Form shall be completed within 24 hours of a person's arrival at the receiving facility and filed in the clinical record of each person: 1. Admitted on a voluntary basis 2. Permitted to provide express and informed consent to his/her own treatment 3. Allowed to transfer from involuntary to voluntary status 4. Prior to permitting a person to consent to his or her own treatment after having been previously found incompetent to consent to treatment. History of Present Illness Capacity: Has Capacity HPI Patient is a 26-year-old man, single with girlfriend Who is currently with his first child, domiciled with sister, unemployed, recently released from incarceration on April 13 after 5 year sentence, with past psychiatric history of bipolar disorder, polysubstance use disorder, no prior psychiatric hospitalizations, no previous suicide attempts or self- injurious behavior who was brought into the emergency room via EMS for altered mental status. Patient was admitted to the medical floor where a psychiatrist was consulted for evaluation as patient was noted to be agitated, appeared to be hallucinating and paranoid which patient required restraints and ETO at that time. Patient was started on Haldol 5 mg by mouth daily for psychosis. Patient was transferred to the inpatient psychiatry unit for further evaluation and management. Patient was transferred to inpatient psychiatry unit for further evaluation and management. Patient found sitting in hospital bed, cooperative interview. Patient states that he had drank tequila at a local strip club which she believes was tainted with drug and was put in district. He reports that he had felt that someone was trying to kill him, and having auditory or visual hallucinations. He states that he was running from everyone wants to get him and ended up at a gas station were police arrived and brought to the hospital. Patient noted to deny and minimize history of substance use. Patient states that he currently feels okay now would like to go home. Patient acknowledges that he would probably benefit from a rehabilitation program for substance use. Patient at this time denies any SI, HI, AVH or delusions. Systems Consultant spoke with patients girlfriend stated confirmed the events that led to his hospitalization and that she noted that he was hallucinating and paranoid at the time. She states that she has never had any prior hospitalizations and felt that after she spoke with him yesterday and today, felt that he was back to his old self. Systems Consultant also spoke with patients sister Sally who stated the same that patient has no prior psychiatric history, feels safe having him home. Past psychiatric history: Self-reported diagnosis of ADHD, polysubstance use disorder (THC, amphetamines, cocaine), no previous psychiatric hospitalization, denies any previous suicide attempt or self-injurious behavior. He reports having been treated for ADHD when he was younger when she was prescribed Adderall but was years ago.. Substance use disorder: Patient reports having recently quit tobacco use, alcohol use he states had tried twice in his whole life last time being 3 days ago as stated above. Patient denies any use of any other substances despite chart showing different. Patient denies any history of rehabilitation or detox programs in the past. Past medical history: Denies Allergies: NKDA Social history: Single, has girlfriend is currently trying his first child, labile with sister, unemployed stating finding job currently, highest education is GED. Review of Systems Except as stated in HPI: all other systems reviewed are Neg Past Psych History Violence risk - others (6 mos) Low Violence risk - self (6 mos) Low Substance Abuse History Drugs/Alcohol past 12 months Patient reports having recently quit tobacco use, alcohol use he states had tried twice in his whole life last time being 3 days ago as stated above. Patient denies any use of any other substances despite chart showing different. Patient denies any history of rehabilitation or detox Past Family Social History Coded Allergies: tomato (Unverified Allergy, Severe, 05/13/17) Uncoded Allergies: PURPLE DYE (Allergy, Severe, 04/26/11) Active Scripts Benztropine (Benztropine) 0.5 Mg Tab, 0.5 MG PO BID for health, #60 TAB 0 Refills Prov:Arnie Willingham MD 05/16/17 Olanzapine (Olanzapine) 5 Mg Tab, 5 MG PO BID for health for 30 Days, #30 TAB Prov:Arnie Willingham MD 05/16/17 Haloperidol (Haloperidol) 5 Mg Tab, 5 MG PO BID, #30 TAB Prov:Raissa Orr MD 05/15/17 Discontinued Reported Medications Miscellaneous (No Current Meds) Misc 04/26/11 Current Medications Medications (Trade) Dose Ordered Sig/Vee Route Start Time Stop Time Status Last Admin (Ativan) 1 mg Q6H PRN PO 05/15/17 20:30 (Ativan Inj) 1 mg Q6H PRN IM 05/15/17 20:30 (Benadryl) 50 mg Q6H PRN PO 05/15/17 21:00 05/16/17 08:55 (Benadryl Inj) 50 mg Q6H PRN IM 05/15/17 20:30 (Benadryl) 50 mg HS PRN PO 05/15/17 20:30 (Benadryl Inj) 50 mg HS PRN IM 05/15/17 20:30 (Tylenol) 650 mg Q4H PRN PO 05/15/17 20:30 (Milk Of Magnesia Liq) 30 ml DAILY PRN PO 05/15/17 20:30 (Mag-Al Plus Susp Liq) 30 ml Q6H PRN PO 05/15/17 20:30 (Habitrol 21 Mg Patch.24 Hr) 1 patch DAILY T-DERMAL 05/16/17 09:00 Miscellaneous Information 1 HS T-DERMAL 05/15/17 21:00 (ZyPREXA) 5 mg BID PO 05/15/17 21:00 (Cogentin) 0.5 mg Q12HR PO 05/16/17 12:00 UNV Social History Single, has girlfriend is currently trying his first child, labile with sister, unemployed stating finding job currently, highest education is GED. Patient's Strengths (min. 2) Verbal and communicative Physical Exam Patient found to be in no acute distress, no gross motor abnormalities, no tremors of EPS, no psychomotor retardation or agitation. Vital Signs Vital Signs Date Time Temp Pulse Resp B/P (MAP) Pulse Ox O2 Delivery O2 Flow Rate FiO2 05/16/17 06:08 98.0 77 16 127/73 (91) 99 Lab Results Labs reviewed. Test 05/16/17 09:54 Total Creatine Kinase 1170 U/L Creatine Kinase MB 2.4 NG/ML Creatine Kinase MB % 0.2 % Mental Status Examination Appearance Appears stated age, calm and cooperative in interview, in hospital [facility] [place], fair hygiene and grooming, fair eye contact. Speech: Unremarkable Orientation: x3 Memory: Unremarkable Thought Process: Logical, Organized Thought Content: Unremarkable Language Fluid and spontaneous Fund of Knowledge Fair Hallucination Type: None Attention and Concentration: Good Suicidal Ideation: No Previous Suicide Attempts: No Homicidal Ideation: No Previous Homicide Attempts: No Insight: Fair Judgment: WNL Affect: Good Mood: Appropriate Motor Activity: Normal gait Assessment & Plan Problem List: (1) Substance-induced psychotic disorder with delusions ICD Codes: F19.950 - Other psychoactive substance use, unspecified with psychoactive substance-induced psychotic disorder with delusions Assessment & Plan Patient is a 26-year-old man, single with girlfriend Who is currently with his first child, domiciled with sister, unemployed, recently released from incarceration on April 13 after 5 year sentence, with past psychiatric history of bipolar disorder, polysubstance use disorder, no prior psychiatric hospitalizations, no previous suicide attempts or self- injurious behavior who was brought into the emergency room via EMS for altered mental status and upon psychiatric observation on the medical floor was put under [facility]ish[facility] act.. Patient was started on Haldol 5 progress by mouth twice a day 1 medical floor was switched to olanzapine 5 mg by mouth twice a day with the addition of benztropine 0.5 mg by mouth twice a day for EPS. Patient had mild dystonic reaction earlier this morning but was resolved with Benadryl 50 mg by mouth 1. Patient at this time denies having any depressive, manic or psychotic symptoms at this time. Patient requested to be discharge, has been compliant with medications. Will contact collateral to confirm previous history given by patient and to assess safety of discharge. Discharge planning in progress. Arnie Willingham MD May 16, 2017 12:13
[2017-05-16] MEDS ORDERED: OLAN5TAB PO (12:21)
[2017-05-16] MEDS ORDERED: BENZ0.5T PO (12:21)
--- NOTE | 2017-05-16 12:22 | HHI.DS ---
Psychiatry Discharge Summary Inpatient Psychiatric care?: Yes Advance Directive: Yes Mental Health AdvanceDirective: No Health Care Proxy: No Admission Admission Date May 15, 2017 at 19:45 Admission Diagnosis: (1) Substance-induced psychotic disorder with delusions ICD Code: F19.950 - Other psychoactive substance use, unspecified with psychoactive substance-induced psychotic disorder with delusions Brief History Patient is a 26-year-old man, single with girlfriend Who is currently with his first child, domiciled with sister, unemployed, recently released from incarceration on April 13 after 5 year sentence, with past psychiatric history of bipolar disorder, polysubstance use disorder, no prior psychiatric hospitalizations, no previous suicide attempts or self- injurious behavior who was brought into the emergency room via EMS for altered mental status. Patient was admitted to the medical floor where a psychiatrist was consulted for evaluation as patient was noted to be agitated, appeared to be hallucinating and paranoid which patient required restraints and ETO at that time. Patient was started on Haldol 5 mg by mouth daily for psychosis. Patient was transferred to the inpatient psychiatry unit for further evaluation and management. Patient was transferred to inpatient psychiatry unit for further evaluation and management. Patient found sitting in hospital bed, cooperative interview. Patient states that he had drank tequila at a local strip club which she believes was tainted with drug and was put in district. He reports that he had felt that someone was trying to kill him, and having auditory or visual hallucinations. He states that he was running from everyone wants to get him and ended up at a gas station were police arrived and brought to the hospital. Patient noted to deny and minimize history of substance use. Patient states that he currently feels okay now would like to go home. Patient acknowledges that he would probably benefit from a rehabilitation program for substance use. Patient at this time denies any SI, HI, AVH or delusions. Quality Assurance Consultant spoke with patients girlfriend stated confirmed the events that led to his hospitalization and that she noted that he was hallucinating and paranoid at the time. She states that she has never had any prior hospitalizations and felt that after she spoke with him yesterday and today, felt that he was back to his old self. Quality Assurance Consultant also spoke with patients sister Sally who stated the same that patient has no prior psychiatric history, feels safe having him home. Past psychiatric history: Self-reported diagnosis of ADHD, polysubstance use disorder (THC, amphetamines, cocaine), no previous psychiatric hospitalization, denies any previous suicide attempt or self-injurious behavior. He reports having been treated for ADHD when he was younger when she was prescribed Adderall but was years ago.. Substance use disorder: Patient reports having recently quit tobacco use, alcohol use he states had tried twice in his whole life last time being 3 days ago as stated above. Patient denies any use of any other substances despite chart showing different. Patient denies any history of rehabilitation or detox programs in the past. Past medical history: Denies Allergies: NKDA Social history: Single, has girlfriend is currently trying his first child, labile with sister, unemployed stating finding job currently, highest education is GED. Tobacco Use In Past 30 Days: No Tobacco Past 30 Days Alcohol Use: Monthly or Less Hospital Course Patient is a 26-year-old man, single with girlfriend Who is currently with his first child, domiciled with sister, unemployed, recently released from incarceration on April 13 after 5 year sentence, with past psychiatric history of bipolar disorder, polysubstance use disorder, no prior psychiatric hospitalizations, no previous suicide attempts or self- injurious behavior who was brought into the emergency room via EMS for altered mental status. Patient was observed for mood and behavior since discharge from the medical floor overnight. Patient had been started on Haldol 5 by mouth twice a day and continued over to Zyprexa 5 mg by mouth twice a day along with benztropine 0.5 mg by mouth twice a day for EPS. Patient upon observation and interview was not endorsing any mood or psychotic symptoms at this time and likely symptomatology was due to recent substance intoxication which has now cleared. Collateral information and had confirmed patient's history and consistent with safety for patient to be discharged home. Patient counseled on this from substance use. Patient provided supportive psychotherapy. Patient agreed to continue current treatment and adhere to outpatient follow-up for continuity of care as well as engage in outpatient rehabilitation program for substance use. Patient advised to call anyone or go to nearest emergency room in case of emergency. Patient family agreeable plan. Results Blood Pressure 127 / 73 Vital Signs Date Time Temp Pulse Resp B/P (MAP) Pulse Ox O2 Delivery O2 Flow Rate FiO2 05/16/17 06:08 98.0 77 16 127/73 (91 99 Laboratory Tests Test 05/16/17 09:54 Total Creatine Kinase 1170 U/L (39-308) Summary of Procedures None Pending results at discharge: No Medications # of Antipsychotic meds at D/C: 1 Approp Antipsych med options 1 - Minimum of three failed multiple trials of monotherapy. 2 - Documented plan to taper to monotherapy due to previous use of multiple meds OR cross-taper in progress at D/C. 3 - Documentation of augmentation of Clozapine. 4 - Justification other than those listed in allowable values 1-3, document here : Discharge Discharge Date: May 16, 2017 Discharge Diagnosis: (1) Substance-induced psychotic disorder with delusions Diagnosis: Principal ICD Code: F19.950 - Other psychoactive substance use, unspecified with psychoactive substance-induced psychotic disorder with delusions (2) Polysubstance abuse Diagnosis: Secondary ICD Code: F19.10 - Other psychoactive substance abuse, uncomplicated Mental Status Exam at Disch Appearance/Behavior: appears stated age, fair hygiene and grooming, in casual clothing, calm and cooperative, fair eye contact Speech: normal rate, tone and prosody Mood: good Affect: euthymic TP: linear, future oriented TC: denies SI, HI, AVH or delusions Insight/Impulse control/ Judgment: fair Pt Condition on Discharge: Stable Discharge Disposition: Discharge Home Discharge Instructions Diet Instructions: As Tolerated, No Restrictions Activities you can perform: Regular-No Restrictions Discharge Time > 30 minutes Discharge/Advance Care Plan Health Problems: (1) Polysubstance abuse Goals to promote your health * To prevent worsening of your condition and complications * To maintain your health at the optimal level Directions to meet your goals Take your medications as prescribed Follow your dietary instruction Follow activity as directed Keep your appointments as scheduled Take your immunizations and boosters as scheduled If your symptoms worsen call your PCP, if no PCP go to Urgent Care Center or Emergency Room For 05/03 questions related to your inpatient stay or results of tests pending at discharge, please contact Dr. Arnie Willingham at Smoking is Dangerous to Your Health. Avoid second hand smoking Arnie Willingham MD May 16, 2017 12:22
[2017-05-16] MEDS ORDERED: BENZTROPINE MESYLATE 1 MG TAB PO SCH (13:00)
== END 2017-05-16 14:42 | disposition home or self-care (01) | DRG 897 ==
LOC: H270 05-15 19:45
PROVIDERS: ADMIT Student in an Organized Health Care Education/Training Program; ATTEND Student in an Organized Health Care Education/Training Program
DX: F19.950 Other psychoactive substance use, unspecified with psychoactive substance-induced psychotic disorder with delusions (principal); Z87.891 Personal history of nicotine dependence
CPT/HCPCS: 82550; 82552; Q0163

== ENCOUNTER 2017-05-16 19:46 | Emergency (ER) | payer SELFPAY ==
[~2017-05-16 19:46] MED LIST changes: +BENZ0.5T PO; +HALO5TAB PO; +OLAN5TAB PO; -Z.0.NO CURRENT MEDS
[2017-05-16 19:50] VITALS: BP 127/89; PULSE 80; RESP 16; TEMP 99; O2SAT 100
== END 2017-05-16 21:12 | disposition left against medical advice (07) ==
LOC: NED 19:46
DX: Z00.8 Encounter for other general examination (principal); Z53.21 Procedure and treatment not carried out due to patient leaving prior to being seen by health care provider
CPT/HCPCS: 99281